=== PATIENT | male | born 1945 | race Caucasian/White ===

== ENCOUNTER → 2016-12-26 14:23 | Outpatient (CLI) | payer SELFPAY ==
[2016-06-18 09:15] VITALS: BMI 21.9
[~2016-12-26 14:23] MED LIST: COREG25 MG PO; HCTZ25 MG PO; LISINOPRIL10 MG PO; METOPROLOL TART50 MG PO; PRILOSEC20 MG PO
[2016-12-26 15:25] LABS: APPEARANCE SLT CLOUDY (CLEAR); BILIRUBIN NEGATIVE (NEGATIVE); COLOR YELLOW (YELLOW); GLUCOSE NEGATIVE (NEGATIVE); KETONE NEGATIVE (NEGATIVE); LEUKOCYTE ESTERASE NEGATIVE (NEGATIVE); NITRITE NEGATIVE (NEGATIVE); PROTEIN NEGATIVE (NEGATIVE); SPECIFIC GRAVITY 1.005 (1.005-1.020)
== END | disposition home or self-care (01) ==
LOC: D.LABREF 14:23
PROVIDERS: Emergency Medicine
DX: I10 Essential (primary) hypertension (principal); F41.9 Anxiety disorder, unspecified; F10.20 Alcohol dependence, uncomplicated

== ENCOUNTER 2017-04-11 09:15 | Inpatient (IN) | payer MEDICARE ==
[~2017-04-11] VITALS: Ht 193 cm; Wt 83.9 kg
[2017-04-11] VITALS (16 sets, daily range): BP systolic 98–154; BP diastolic 54–88; BMI 22.5
[2017-04-11 10:37] LABS: BASOPHILS 0 % (0-2); EOSINOPHILS 0 % (0-7); HEMATOCRIT 32.1 % (42.0-54.0); HEMOGLOBIN 11.2 g/dL (13.5-17.5); IMMATURE GRANULOCYTES 0.2 % (0-5); LYMPHOCYTES 4.8 % (15-50); MCH 32.5 pg (26.0-34.0); MCHC 34.9 g/dL (31.0-37.0); MEAN PLATELET VOLUME 9.6 fL (7.4-10.4); MONOCYTES 15.4 % (2-11); NEUTROPHILS 79.6 % (40-80); PLATELET COUNT 299 10x3/uL (130-400); RBC 3.45 10x6/uL (4.20-6.10); RDW 13.9 % (11.5-14.5); WBC 12.6 10x3/uL (4.8-10.8)
[2017-04-11 10:52] LABS: ALBUMIN 3.3 g/dL (3.4-5.0); ANION GAP 12.4 mmol/L (8-16); BILIRUBIN - TOTAL 0.7 mg/dL (0.2-1.3); CALCIUM 8.3 mg/dL (8.5-10.1); CARBON DIOXIDE 27.8 mmol/L (21.0-32.0); CREATININE - SERUM 1.4 mg/dL (0.6-1.3); MAGNESIUM - SERUM 2.2 mg/dL (1.8-2.4); POTASSIUM - SERUM 3.2 mmol/L (3.5-5.1); PROTEIN - SERUM 7.3 g/dL (6.4-8.2)
[2017-04-11 12:27] LABS: T4 THYROXINE 6.8 ug/dL (4.7-13.3); THYROID STIMULATING HORMONE 0.66 uIU/mL (0.36-3.74)
[2017-04-11 12:43] LABS: BASOPHILS 0 % (0-2); EOSINOPHILS 0 % (0-7); HEMOGLOBIN 10.5 g/dL (13.5-17.5); IMMATURE GRANULOCYTES 0.3 % (0-5); LYMPHOCYTES 8.4 % (15-50); MCH 32.4 pg (26.0-34.0); MCV 92.6 fL (80.0-100.0); MEAN PLATELET VOLUME 9.4 fL (7.4-10.4); MONOCYTES 13.6 % (2-11); NEUTROPHILS 77.7 % (40-80); PLATELET COUNT 277 10x3/uL (130-400); RBC 3.24 10x6/uL (4.20-6.10); RDW 13.8 % (11.5-14.5); WBC 12.1 10x3/uL (4.8-10.8)
[2017-04-11] MEDS ORDERED: BAYER ASPIRIN325 MG PO (13:20)
--- NOTE | 2017-04-11 13:45 | NUR ---
PT ARRIVED BY STRETCHER TO ROOM. SWITCHED OVER TO ICU MONITORS. LEFT AC PIV WITH NS AT 100CC/HR AND BANANA BAG INFUSING AT 225CC/HR. NURSE RECIEVING CARE OF PT IS WHITNEY MCCANN RN.
[2017-04-11 14:22] LABS: APPEARANCE CLEAR (CLEAR); BACTERIA FEW /hpf (NONE SEEN); BILIRUBIN NEGATIVE (NEGATIVE); COLOR YELLOW (YELLOW); EPITHELIAL CELLS 0-5 /hpf (0-5); GLUCOSE NEGATIVE (NEGATIVE); KETONE NEGATIVE (NEGATIVE); LEUKOCYTE ESTERASE NEGATIVE (NEGATIVE); NITRITE NEGATIVE (NEGATIVE); PROTEIN TRACE mg/dL (NEGATIVE); RED CELLS - URINE OCC /hpf (0-5); SPECIFIC GRAVITY 1.015 (1.005-1.020); UROBILINOGEN NORMAL (NORMAL); WHITE CELLS - URINE NSEEN /hpf (0-5)
--- NOTE | 2017-04-11 14:29 | NUR ---
LAB AT BEDSIDE TO REDRAW LACTIC ACID AND CBC
[2017-04-11 14:45] LABS: BASOPHILS 0 % (0-2); EOSINOPHILS 0 % (0-7); HEMATOCRIT 30.3 % (42.0-54.0); HEMOGLOBIN 10.5 g/dL (13.5-17.5); IMMATURE GRANULOCYTES 0.2 % (0-5); LYMPHOCYTES 5.3 % (15-50); MCH 32.4 pg (26.0-34.0); MCHC 34.7 g/dL (31.0-37.0); MCV 93.5 fL (80.0-100.0); MEAN PLATELET VOLUME 9.5 fL (7.4-10.4); MONOCYTES 14.8 % (2-11); NEUTROPHILS 79.7 % (40-80); PLATELET COUNT 266 10x3/uL (130-400); RBC 3.24 10x6/uL (4.20-6.10); RDW 13.9 % (11.5-14.5); WBC 10.8 10x3/uL (4.8-10.8)
--- NOTE | 2017-04-11 14:46 | NUR ---
20G PIV STARTED IN RIGHT HAND X2 STICKS.
--- NOTE | 2017-04-11 14:52 | NUR ---
PT MILDLY AGGITATED. REPORTING THAT HE USUALLY DRINKS BEER IN THE MORNING. C/O HEADACHE. WILL GIVE ATIVAN ORDERED AND CONTINUE TO MONITOR.
--- NOTE | 2017-04-11 14:54 | NUR ---
BED ALARM ON AND BILATERAL SCDs PLACED. CALL LIGHT WITHIN REACH.
[2017-04-11] MEDS ORDERED: EXCEDRIN CAPLET1 TAB PO (14:55)
[2017-04-11 15:10] LABS: CKMB 1.2 U/L (0.0-3.6); CREATINE KINASE 68 UL (21-232); TROPONIN-I 0.028 ng/mL (0.000-0.060)
--- NOTE | 2017-04-11 18:49 | NUR ---
TEMP. 101.5. BC X 2 ORDERED.
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
--- NOTE | 2017-04-11 20:00 | NUR ---
2000: Dr. Chapin here at bedside and speaking with patient. Diluadid IVP admin for pain at this time. Carafate admin and pt has not difficulty with swallow. Assisted pt reposition and provided water as per request.
--- NOTE | 2017-04-11 22:00 | NUR ---
2200: Pt resting with eyes closed at this time.
[2017-04-11 22:28] LABS: HEMATOCRIT 25.1 % (42.0-54.0); HEMOGLOBIN 8.7 g/dL (13.5-17.5)
--- NOTE | 2017-04-11 22:30 | NUR ---
2230: Pt with occasional periods of UAFib 110's on CM. No change in RESP//NV status and SBP remains >120.
[2017-04-11 22:52] LABS: CKMB 0.9 U/L (0.0-3.6); CREATINE KINASE 62 UL (21-232); POTASSIUM - SERUM 3.3 mmol/L (3.5-5.1); TROPONIN-I 0.033 ng/mL (0.000-0.060)
--- NOTE | 2017-04-11 23:00 | NUR ---
2300: Pt has occasional apnea episodes only lasting seconds while sleeping. Pt encouraged to DBC. Cont. SPO2 monitor in place with alarms set.
[2017-04-12] VITALS (28 sets, daily range): BP systolic 100–170; BP diastolic 42–115; Ht 193 cm; Wt 83.9 kg
--- NOTE | 2017-04-12 | NUR ---
0000: Planned procedure for AM reviewed with patient. Pt verbalized understanding including risks vs benefits. Pt signed consents for anesthesia, procedure and blood products.
--- NOTE | 2017-04-12 00:05 | NUR ---
0005: H/H returned and PRBC up with BT and NS as per policy to left a/c PIV.
--- NOTE | 2017-04-12 03:00 | NUR ---
0300: Pt resting with eyes closed at this time. Awake to verbal, but slow to respond. Pt remains in UAfib 100's at this time. 2nd unit of PRBCs started. No transfusion rx noted wtih 1st unit completion.
--- NOTE | 2017-04-12 05:15 | NUR ---
0515: Pt PRBC completed at this time. Pt remains UAfib 110's on CM. Pt remains slow to respond, but responds appropriateley and oriented to person, place, and time.
[2017-04-12 06:02] LABS: BASOPHILS 0 % (0-2); EOSINOPHILS 0.1 % (0-7); IMMATURE GRANULOCYTES 0.1 % (0-5); MCH 32.3 pg (26.0-34.0); MCHC 34.2 g/dL (31.0-37.0); MCV 94.5 fL (80.0-100.0); MEAN PLATELET VOLUME 9.5 fL (7.4-10.4); MONOCYTES 15.4 % (2-11); NEUTROPHILS 75.4 % (40-80); RBC 3.25 10x6/uL (4.20-6.10); RDW 14.3 % (11.5-14.5)
[2017-04-12 06:07] LABS: HEMATOCRIT 30.7 % (42.0-54.0); HEMOGLOBIN 10.5 g/dL (13.5-17.5); PLATELET COUNT 200 10x3/uL (130-400); WBC 6.9 10x3/uL (4.8-10.8)
[2017-04-12 06:18] LABS: APTT 25.3 SECONDS (22.8-39.4); INR 1.06 (0.85-1.17); PROTIME 13.6 SECONDS (11.6-15.0)
[2017-04-12 06:37] LABS: ALBUMIN 2.6 g/dL (3.4-5.0); ALKALINE PHOSPHATASE 59 U/L (46-116); ALT (SGPT) 7 U/L (10-68); BILIRUBIN - TOTAL 1.28 mg/dL (0.2-1.3); CALCIUM 7.6 mg/dL (8.5-10.1); CHLORIDE - SERUM 101 mmol/L (98-107); CKMB 0.9 U/L (0.0-3.6); CREATINE KINASE 63 UL (21-232); GLUCOSE 102 mg/dL (74-106); PROTEIN - SERUM 5.7 g/dL (6.4-8.2); SODIUM 131 mmol/L (136-145)
[2017-04-12 06:38] LABS: CALC OSMOLALITY 269 mosm/kg (275-300); POTASSIUM - SERUM 4.2 mmol/L (3.5-5.1); TROPONIN-I < 0.017 ng/mL (0.000-0.060); UREA NITROGEN 31 mg/dL (7-18); eGFR NON AFRICAN AMERICAN 78 mL/min (90-120)
--- NOTE | 2017-04-12 08:09 | NUR ---
LARGE ENEMAS X 2 ADMIN AT THIS TIME ORDERED. ALSO AT THIS TIME BED BATH ADMIN. PT DENIES ANY NEEDS. WILL CONTINUE PLAN OF CARE.
--- NOTE | 2017-04-12 10:04 | NUR ---
NO ACUTE DISTRESS NOTED AT THIS TIME. PT AWAKE IN BED. CALL LIGHT IN REACH. WILL CONTINUE PLAN OF CARE.
--- NOTE | 2017-04-12 12:01 | NUR ---
NOTED FLEX SIG HAS COMPLETED BY DR FLAHERTY, ORDERS PLACED. PT DENIES ANY NEEDS. WILL CONTINUE PLAN OF CARE.
--- NOTE | 2017-04-12 12:06 | NUR ---
EGD WITH COLONSCOPY DONE.
--- NOTE | 2017-04-12 12:29 | NUR ---
SPOKE WITH PTS DAUGHTER, UPDATE GIVEN. NO ACUTE DISTRESS NOTED. WILL CONTINUE PLAN OF CARE.
--- NOTE | 2017-04-12 13:39 | NUR ---
NOTED PT IS HYPERTENSIVE, BP 170/98. DR NAVARRO CALLED AND NOTIFIED. ORDERS RECIEVED. WILL CONTINUE PLAN OF CARE.
--- NOTE | 2017-04-12 14:34 | NUR ---
SITTING UP IN BED EATING AT THIS TIME. NO S/S ASPIRATION. NO ACUTE DISTRESS NOTED. WILL CONTINUE PLAN OF CARE.
--- NOTE | 2017-04-12 14:51 | NUR ---
HEART RATE NOTED CONVERTING FROM AFIB IN THE 80S TO SINUS WITH PACS IN THE 50S. PT DENIES ANY DISCOMFORT AND STATES HE FEELS FINE. BLOOD PRESSURE 151/84. WILL CONTINUE PLAN OF CARE.
--- NOTE | 2017-04-12 15:16 | NUR ---
RESTING IN BED AT THIS TIME, RESPIRATIONS AT STEADY AND UNLABORED RATE. NO ACUTE DISTRESS NOTED. AWAKENS EASILY WHEN SPOKEN TO. HEART RATE 94 AFIB. WILL CONTINUE PLAN OF CARE.
[2017-04-12 16:41] LABS: HEMATOCRIT 36.6 % (42.0-54.0); HEMOGLOBIN 12.4 g/dL (13.5-17.5)
--- NOTE | 2017-04-12 17:22 | NUR ---
INCONTINENT LOOSE BOWEL MOVEMENT AT THIS TIME, CLEAR BLACK. TOTAL BED CHANGE PROVIDED. NO ACUTE DISTRESS NOTED. WILL CONTINUE PLAN OF CARE.
--- NOTE | 2017-04-12 19:00 | NUR ---
Pt remains in bed with eyes closed. Open to verbal and oriented to person, place, and time. Pt moves x4 extrem vs gravity. Pt restless in bed. Breathing RA RR18x with SPO2 98% Lungs clear bilat. S1S2 regular SR with PACs seen on CM. ABD soft NT BS hypo x4. No bleeding seen at this time. Pt repositioned for comfort. Readjusted BP cuff.
--- NOTE | 2017-04-12 19:36 | NUR ---
IV TO LEFT AC NOTED PULLED OUT BY PTS MOVEMENTS. IV DC AT THIS TIME, CATHETER TIP INTACT. WILL CONTINUE PLAN OF CARE.
--- NOTE | 2017-04-12 21:00 | NUR ---
2100: Pt mouth dry. Oral care done with Oral care kit including moisturizer and H202. PO Rx after and pt has no difficulty with swallow. No change in pt RESP/CV/NV status. Pt remains SR 70's on CM with occasional PACs seen.
[2017-04-12 22:09] LABS: HEMATOCRIT 31.4 % (42.0-54.0); HEMOGLOBIN 10.5 g/dL (13.5-17.5)
[2017-04-13] VITALS (24 sets, daily range): BP systolic 122–169; BP diastolic 64–106
--- NOTE | 2017-04-13 01:00 | NUR ---
0100: Pt resting with eyes closed. Pt moves self in bed frequently. Resting on left side at this time. Pt CAfib 80's on CM with SBP 120's. No change in IVF/UOP. No bleeding seen at this time.
--- NOTE | 2017-04-13 04:30 | NUR ---
0430: No change in pt RESP/CV/NV status. No change in IVF/UOP. Pt remains CAfib 80-90's with SBP 120's. No bleeding seen, No BM, No vomitus at this time.
[2017-04-13 05:47] LABS: BASOPHILS 0.2 % (0-2); EOSINOPHILS 1.4 % (0-7); HEMATOCRIT 30.5 % (42.0-54.0); HEMOGLOBIN 10.3 g/dL (13.5-17.5); IMMATURE GRANULOCYTES 0.2 % (0-5); MCH 31.6 pg (26.0-34.0); MCHC 33.8 g/dL (31.0-37.0); MCV 93.6 fL (80.0-100.0); MEAN PLATELET VOLUME 9.5 fL (7.4-10.4); MONOCYTES 13.6 % (2-11); NEUTROPHILS 75.6 % (40-80); PLATELET COUNT 217 10x3/uL (130-400); RBC 3.26 10x6/uL (4.20-6.10); RDW 14.3 % (11.5-14.5); WBC 5.8 10x3/uL (4.8-10.8)
[2017-04-13 06:12] LABS: ALBUMIN 2.5 g/dL (3.4-5.0); ALKALINE PHOSPHATASE 65 U/L (46-116); BILIRUBIN - TOTAL 0.82 mg/dL (0.2-1.3); CALCIUM 7.6 mg/dL (8.5-10.1); CARBON DIOXIDE 22.1 mmol/L (21.0-32.0); CHLORIDE - SERUM 99 mmol/L (98-107); GLUCOSE 131 mg/dL (74-106); PROTEIN - SERUM 5.9 g/dL (6.4-8.2); SODIUM 130 mmol/L (136-145); eGFR NON AFRICAN AMERICAN 78 mL/min (90-120)
[2017-04-13 06:13] LABS: ALT (SGPT) 4 U/L (10-68); APTT 26.3 SECONDS (22.8-39.4); CALC OSMOLALITY 262 mosm/kg (275-300); POTASSIUM - SERUM 3.5 mmol/L (3.5-5.1); UREA NITROGEN 13 mg/dL (7-18)
[2017-04-13 06:14] LABS: INR 1.6 (0.85-1.17)
--- NOTE | 2017-04-13 08:29 | NUR ---
SITTING UP ON SIDE OF BED EATING BREAKFAST AT THIS TIME. DENIES ANY NEEDS. NO ACUTE DISTRESS NOTED. WILL CONTINUE PLAN OF CARE.
--- NOTE | 2017-04-13 10:32 | NUR ---
SPOKE WITH DR FLAHERTY AT THIS TIME, ORDERS RECIEVED.
--- NOTE | 2017-04-13 12:42 | NUR ---
NOTED HCT IS 30.0. INFUSION PARAMETERS STATE TO ADMIN 1 UNIT OF PRBC AT THIS TIME. WILL TRANSFUSE SHORTLY PER ORDRES. WILL CONTINUE PLAN OF CARE.
--- NOTE | 2017-04-13 13:31 | NUR ---
PERIPHERAL IV PLACED TO LEFT WRIST, 20G X 2 TRIALS. FLUSHES WELL. WILL CONTINUE PLAN OF CARE.
--- NOTE | 2017-04-13 14:30 | NUR ---
TOTAL LINEN CHANGE PROVIDED AT THIS TIME. OLD SHEETS NOTED SATURATED WITH URINE WHILE PT WAS ATTEMPTING TO USE URINAL. NO ACUTE DISTRESS NOTED. WILL CONTINUE PLAN OF CARE.
--- NOTE | 2017-04-13 16:17 | NUR ---
AWAKE IN BED AT THIS TIME WATCHING TV. DENIES ANY NEEDS. NO ACUTE DISTRESS NOTED. WILL CONTINUE PLAN OF CARE.
--- NOTE | 2017-04-13 17:08 | NUR ---
BP NOTED AT 183/100. DR NAVARRO CALLED TO NOTIFY. ORDERS RECIEVED. ALSO AT THIS TIME SPOKE WITH DR FLAHERTY, NOTED ORDER TO DECREASE H&H FROM Q6H TO ONE DAILY IN AM. NO ACUTE DISTRESS NOTED. WILL CONTINUE PLAN OF CARE.
--- NOTE | 2017-04-13 19:30 | NUR ---
ASSESSMENT COMPLETE. CONTROLLED AFIB SHOWING ON MONITOR. RR EQUAL NON LABORED; RHONCHI BILATERALLY IN MID AND UPPER LOBES; DIMINISHED BILATERALLY IN LOWER LOBES. AAO. PT INCONTINENT OF URINE; ATTEMPTED TO USE URINAL BUT MISSED. RADIAL AND PEDAL PULSES +2. BOWEL SOUNDS ACTIVE X4. DENIES PAIN. DENIES ANY FURTHER NEEDS AT THIS TIME.
--- NOTE | 2017-04-13 21:00 | NUR ---
NO VISITORS DURING VISITATION.
--- NOTE | 2017-04-13 22:25 | NUR ---
PT C/O HEADACHE. PRN DILAUDID GIVEN. SEE EMAR FOR DETAILS.
--- NOTE | 2017-04-13 23:00 | NUR ---
REASSESSMENT COMPLETE. NO ACUTE CHANGES FROM PREVIOUS ASSESSMENT. WILL CONTINUE MONITOR.
[2017-04-14] VITALS (24 sets, daily range): BP systolic 129–192; BP diastolic 75–112
--- NOTE | 2017-04-14 01:10 | NUR ---
PT RESTING; EYES CLOSED. VSS. NO DISTRESS NOTED. CALL LIGHT IN REACH. WILL CONTINUE TO MONITOR.
--- NOTE | 2017-04-14 03:10 | NUR ---
REASSESSMENT COMPLETE. NO ACUTE CHANGES FROM PREVIOUS ASSESSMENT. WILL CONTINUE TO MONITOR.
[2017-04-14 03:53] LABS: BASOPHILS 0.2 % (0-2); EOSINOPHILS 2.4 % (0-7); HEMATOCRIT 32.4 % (42.0-54.0); HEMOGLOBIN 11.1 g/dL (13.5-17.5); IMMATURE GRANULOCYTES 0.4 % (0-5); LYMPHOCYTES 10.2 % (15-50); MCH 32.3 pg (26.0-34.0); MCHC 34.3 g/dL (31.0-37.0); MCV 94.2 fL (80.0-100.0); MEAN PLATELET VOLUME 9.1 fL (7.4-10.4); NEUTROPHILS 68.8 % (40-80); PLATELET COUNT 232 10x3/uL (130-400); RBC 3.44 10x6/uL (4.20-6.10); RDW 15.1 % (11.5-14.5); WBC 5.1 10x3/uL (4.8-10.8)
--- NOTE | 2017-04-14 04:09 | NUR ---
PT C/O HEADACHE 02/19. PRN DILAUDID GIVEN PER ORDERS. SEE EMAR FOR DETAILS.
[2017-04-14 04:11] LABS: ALBUMIN 2.5 g/dL (3.4-5.0); ALKALINE PHOSPHATASE 71 U/L (46-116); ALT (SGPT) 8 U/L (10-68); BILIRUBIN - TOTAL 0.71 mg/dL (0.2-1.3); CALC OSMOLALITY 264 mosm/kg (275-300); CALCIUM 7.7 mg/dL (8.5-10.1); CARBON DIOXIDE 26.9 mmol/L (21.0-32.0); CHLORIDE - SERUM 99 mmol/L (98-107); CREATININE - SERUM 0.9 mg/dL (0.6-1.3); GLUCOSE 120 mg/dL (74-106); POTASSIUM - SERUM 3.7 mmol/L (3.5-5.1); PROTEIN - SERUM 5.5 g/dL (6.4-8.2); SODIUM 133 mmol/L (136-145); UREA NITROGEN 8 mg/dL (7-18); eGFR NON AFRICAN AMERICAN 88 mL/min (90-120)
--- NOTE | 2017-04-14 05:23 | NUR ---
COMPLETE BED BATH GIVEN. COMPLETE LINEN CHANGE.
--- NOTE | 2017-04-14 07:30 | NUR ---
ULTRA SOUND IN PT ROOM FOR ABD ULTRASOUND.
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
--- NOTE | 2017-04-14 09:00 | NUR ---
PT LYING ON RIGHT SIDE WITH 0 S/SX OF DISTRESS/DISCOMFORT NOTED. USES URINAL WITH CLEAR YELLOW URINE NOTED. 0 NEEDS VOICED AT THIS TIME. CALL LIGHT IN REACH. WILL CONT POC.
--- NOTE | 2017-04-14 09:39 | NUR ---
Nutrition follow-up: Diet: Full liquids PO intake 75-100% of FL +BM Labs reviewed Wt: 185# RDN following.
--- NOTE | 2017-04-14 10:30 | NUR ---
C/O HEAD ACHE. PRN TYLENOL GIVEN. NO OTHER COMPLAINTS AT THIS TIME. RIGHT WRIST STILL SWOLLEN. NEW HEAT BAG GIVEN TO PT TO PUT ON WRIST. CALL LIGHT IN REACH. WILL CONT POC.
--- NOTE | 2017-04-14 11:00 | NUR ---
PT LYING IN BED RESTING WITH EYES CLOSED. NO ACUTE CHANGES. STATES THAT HE IS HUNGRY. TOLD HIM THAT I WILL TALK TO HIM MD ABOUT HIS DIET.
--- NOTE | 2017-04-14 11:05 | NUR ---
REASSESSED HEAD ACHE. "IT FEELS MUCH BETTER" 10/22
--- NOTE | 2017-04-14 11:09 | NUR ---
* Is the patient Alert and Oriented? Yes 0 * How many steps to enter\exit or inside your home? Ramp 0 * PCP None 0 * Preadmission Environment Home with Family 0 * ADLs Partial Dependent 0 * Partial ADLs (Assistance needed) Ambulation 0 * Equipment Cane Rolling Walker Wheelchair 0 * List name and contact numbers for known caregivers / representatives who currently or will assist patient after discharge: Memo Hopson [phone] 0 * Additional services required to return to the preadmission environment? Yes 0 * Can the patient safely return to the preadmission environment? Yes 0 * Has this patient been hospitalized within the prior 30 days at any hospital? No Patient Name: GORDO CELESTIN Admission Status: ER Accout number: [id number] Admission Date: 04-11-2017 : 1945 Admission Diagnosis: Attending: BALAJI Current LOS: 3 Anticipated DC Date: 04-16-2017 Planned Disposition: Home Primary Insurance: MEDICARE PART A ONLY Discharge Planning Comments: CM met with patient to assess dc plans/needs. He is alert & oriented x3, answers questions appropriately. He states he lives with his daughter & her family. He states he primarily uses a wheelchair for mobility, but has a walker and cane as well. He states he has had home health services in the past but does not know which agency. At dc, he states he will go back home with his family. Home Health referral may be appropriate. CM will follow & assist as needed. Busgirl: Jennifer Salcedo
--- NOTE | 2017-04-14 12:00 | NUR ---
OK'D TO EAT LUNCH. THIN LIQUID DIET. THIN LIQUID DIET GIVEN TO PT. AT 100% WITH 0 DYSPHAGIA NOTED. NO BLOODY EMESIS NOTED. TOLERATED DIET WELL. 0 S/SX OF DISTRESS/DISCOMFORT NOTED. BREATHING NORMAL AND UNLABORED. CALL LIGHT IN REACH.
--- NOTE | 2017-04-14 12:20 | NUR ---
SPOKE WITH DR. PITT'S ABOUT PTS DIET, "YOU CAN GIVE HIM HIS DIET, I WILL BE THERE LATER."
--- NOTE | 2017-04-14 13:08 | NUR ---
BED BAD GIVEN. PT ABLE TO WASH FACE AND ABD BY HIMSELF. THE REST OF THE BATH WAS PROVIDED BY THIS NURSE. CORN STARCH APPLIED TO PERIAREA. LOTION APPLIED TO BODY. 0 SKIN BREAKDOWN NOTED. FULL LINEN CHANGE. RESIDENT DENIES NEEDS AT THIS TIME.
--- NOTE | 2017-04-14 14:00 | NUR ---
PT RESTING WITH EYES CLOSED. 0 S/SX OF DISTRESS/DISCOMFORT NOTED. BREATHING NORMAL AND UNLABORED. 0 ACUTE CHANGES FROM THIS MORNING. VS STABLE. IN CONTROLLED AFIB 60-75. USES BED SIDE URINAL PERIODICALLY. CALL LIGHT IN REACH. WILL CONT POC.
--- NOTE | 2017-04-14 15:00 | NUR ---
PT RESTING WITH EYES CLOSED. 0 ACTUE CHANGES NOTED. WILL CONT POC.
--- NOTE | 2017-04-14 16:50 | NUR ---
PT HAD TEA AT BED SIDE AND HE ACCIDENTLY SPILLED IT IN HIS BED. HE BECAME VERY AGGITATED AND AGGRESSIVE FOR A BRIEF MOMENT AND THEN APPOLOGIZED. LINEN AND GOWN CHANGED.
--- NOTE | 2017-04-14 17:00 | NUR ---
SITTING UP AT BED SIDE EATING THIN LIQUID DIET. TOLERATING WELL WITH 0 DYSPAGIA OR BLOODY EMESIS NOTED. ONCE FINISHED, HE CRAWLED BACK IN TO BED WITH NO COMPLAINTS. 0 S/SX O DISTRESS/DISCOMFORT NOTED. BREATHING LUIS A AND UNLABORED. WILL CONT POC.
--- NOTE | 2017-04-14 17:50 | NUR ---
CALLED FOR ASSISTANCE TO SIT FURTHER UP IN BED. EXPLAINED FOR HIM TO USE HIS FEET WE HELP PULL HIM IN BED USING THE DRAW SHEET WHERE HE BRIEFLY BECAME AGGITATED AND AGGRESIVE VERBALLY. HE THEN APOLOGIZED AGAIN AND WAS COOPERATIVE. 0 S/SX OF DISTRESS/DISCOMFORT NOTED. BREATHING NORMAL AND UNLABORED. CALL LIGHT IN REACH. WILL CONT POC.
--- NOTE | 2017-04-14 18:21 | NUR ---
PT LYING IN BED RESTING WITH EYES CLOSED WITH 0 SS/X OF DISTRESS/DISCOMFORT NOTED. BREATHING NORMAL AND UNLABORED. CALL LIGHT IN REACH.
--- NOTE | 2017-04-14 18:42 | NUR ---
PRN ATIVAN GIVEN DUE TO INCREASED AGGITATION AND POSSIBLE WITHDRAW FROM ALCOHOL. PT NOT HAVE A SIEZURE.
--- NOTE | 2017-04-14 19:30 | NUR ---
REPORT RECIEVED. ASSESSMENT COMPLETED. PT ALERT AND ORIENTATED X4. PT RT EYE FIXED DUE TO PERVIOUS TRAMA. LT PUPIL ROUND AND BRISK. LUNG SOUNDS WITH CRACKLES ON EXPIRATION IN UPPER LOBES. DIMINISHED BREATH SOUNDS IN THE LOWER LOBES. BOWEL SOUNDS ACTIVE X4. ALL PULESES PALPABLE. POSITIONED FOR COMFORT. WILL CONTINUE TO MONITOR.
--- NOTE | 2017-04-14 20:05 | NUR ---
DR. VARMA IN WITH PT. WILL DONTINUE TO MONITOR.
--- NOTE | 2017-04-14 21:00 | NUR ---
NO VISITORS AT THIS TIME. PT POSITIONED FOR COMFORT WILL CONTINUE TO MONITOR.
--- NOTE | 2017-04-14 23:00 | NUR ---
REASSESSMENT COMPLETED. PT STATED HE WAS HUNGRY GAVE HIM A SANDWICH TRY. PROVIDED CLEAN LINENS. POSITIONED FOR COMFORT. WILL CONTINUE TO MONITOR.
[2017-04-15] VITALS (14 sets, daily range): BP systolic 131–185; BP diastolic 70–109
--- NOTE | 2017-04-15 01:00 | NUR ---
PT APPEARA TO BE ASLEEP. WILL CONTINUE TO MONITOR.
--- NOTE | 2017-04-15 01:25 | NUR ---
REASSESSMENT COMPLETED PT SAID HE WAS HUNGRY SO GOT HIM A SANDWICH TRY AND GAVE HIM CLEAN LINENS. POSITIONED FOR COMFORT WILL CONTINUE TO MONITOR.
--- NOTE | 2017-04-15 03:00 | NUR ---
REASSESSMENT COMPLETED. PT STATED HE WAS HUNGRY GAVE HIM SOME GRAM CRACKERS TOLERATED THEN WELL. WILL CONTINUE TO MONITOR.
[2017-04-15 04:05] LABS: BASOPHILS 0.2 % (0-2); EOSINOPHILS 1.8 % (0-7); HEMATOCRIT 33.8 % (42.0-54.0); HEMOGLOBIN 11.4 g/dL (13.5-17.5); IMMATURE GRANULOCYTES 0.3 % (0-5); LYMPHOCYTES 9.4 % (15-50); MCH 31.8 pg (26.0-34.0); MCHC 33.7 g/dL (31.0-37.0); MCV 94.2 fL (80.0-100.0); MEAN PLATELET VOLUME 9.6 fL (7.4-10.4); MONOCYTES 12.6 % (2-11); NEUTROPHILS 75.7 % (40-80); PLATELET COUNT 244 10x3/uL (130-400); RBC 3.59 10x6/uL (4.20-6.10); RDW 14.5 % (11.5-14.5); WBC 6.6 10x3/uL (4.8-10.8)
[2017-04-15 04:14] LABS: ALBUMIN 2.6 g/dL (3.4-5.0); ALKALINE PHOSPHATASE 87 U/L (46-116); ALT (SGPT) 11 U/L (10-68); BILIRUBIN - TOTAL 0.52 mg/dL (0.2-1.3); CALC OSMOLALITY 263 mosm/kg (275-300); CALCIUM 7.6 mg/dL (8.5-10.1); CARBON DIOXIDE 25.7 mmol/L (21.0-32.0); CHLORIDE - SERUM 97 mmol/L (98-107); GLUCOSE 157 mg/dL (74-106); POTASSIUM - SERUM 3.3 mmol/L (3.5-5.1); PROTEIN - SERUM 5.9 g/dL (6.4-8.2); SODIUM 131 mmol/L (136-145); UREA NITROGEN 7 mg/dL (7-18); eGFR NON AFRICAN AMERICAN 78 mL/min (90-120)
--- NOTE | 2017-04-15 05:15 | NUR ---
PT WET THE BED CLEAN LINENS AND BATH APPLIED. WILL CONTINUE TO MONITOR.
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
[2017-04-15 08:12] LABS: CEA 2.3 ng/mL (0.0-4.7)
--- NOTE | 2017-04-15 08:33 | NUR ---
NONPRODUCTIVE COUGH NOTED. EXPITORY WHEEZING NOTED TO BILATERAL LUNGS. IS GIVEN AND EXPLAINED HOW TO USE IT. PT DEMOSTRATED USE TO THIS NURSE AND USES Q 10 MINS. WILL CONT POC AND MONITOR.
--- NOTE | 2017-04-15 08:45 | NUR ---
AT BED SIDE.
--- NOTE | 2017-04-15 08:50 | NUR ---
LOPRESSOR GIVEN PER ORDRES. RECHECKED 45 MINUTES LATER WITH 155/75. DENEIS PAIN. 0 NEEDS VOICED AT THIS TIME. CALL LIGHT IN REACH. WILL CONT POC.
--- NOTE | 2017-04-15 09:00 | NUR ---
ORDERS TO DC PT FROM ICU. PT AWARE.
--- NOTE | 2017-04-15 10:41 | NUR ---
LYING IN BED WATCHING TV. REQUESTED SOME SWEET TEA. GIVEN AND PT DRINKING. NO OTHER NEEDS AT THIS TIME.
--- NOTE | 2017-04-15 12:49 | NUR ---
FAMILY AT BED SIDE. AWARE OF PT'S CONDITION AND PLANS
--- NOTE | 2017-04-15 13:40 | NUR ---
BED WET WITH URINE. URINAL AT BED SIDE FILLED WITH 190ML OF URINE. FULL BED BATH GIVEN, DEODERATE APPLIED AND CORN STARCH POWDER APPLIED TO PERIAREA. FULL LINEN CHANGE AND NEW GOWN DONNED. AWAITING ROOM IN HOSPITAL FOR PT TO BE DC'D FROM ICU. VS STABLE. DENIES PAIN AND HAS NO NEEDS AT THIS TIME. CALL LIGHT IN REACH. WILL CONT MONITOR.
--- NOTE | 2017-04-15 14:00 | NUR ---
SLEEPING WITH NO SIGNS OF DISTRESS, VSS, AROUSABLE TO VERBAL STIMULI, CALL LIGHT IN REACH, VOOICES NO NEEDS AT THIS TIME
--- NOTE | 2017-04-15 14:30 | NUR ---
CALL LIGHT ON, 250 CC TO URINAL, EMPTIED
--- NOTE | 2017-04-15 15:00 | NUR ---
CALL LIGHT ON 300 CC URINE TO URINAL EMPTIED, NO OTHER ACUTE CHANGE FROM PREVIOUS ASSESSMENT, CALL LIGHT IN REACH, VOICES NO NEEDS AT THIS TIME
--- NOTE | 2017-04-15 16:30 | NUR ---
DINNER TRAY TO BEDSIDE, PATIENT INDEPENDENT SAT AT BEDSIDE TO EAT
--- NOTE | 2017-04-15 17:58 | NUR ---
CALL LIGHT ON, LARGE FORMED BM TO BEDPAN, SKINCARE AND COMPLETE LINEN CHANGE FOR SPILLAGE OF URINE FROM URINAL, REPOSITIONED WITH PERSONNEL X2 AND PATIENT HELP, TOLERATED WITHOUT DIFFICULTY
--- NOTE | 2017-04-15 20:47 | NUR ---
RECIEVED PT VIA BED FROM ICU. ALERT AND ORIENTED AND ABLE TO VERBALIZE NEEDS. IV IS PATENT AND FLUIDS ARE RUNNING PER ORDER. SCD'S ON. PT STATES PAIN IS 10/10. VILLA MAT PLACED ON FOR SAFETY. PT IS ORIENTED TO ROOM AND USE OF CALL LIGHT. NO NEEDS ARE VERBALIZED AT THIS TIME. WILL CONTINUE TO MONITOR. SIDE RAILS ARE UP X 2. BED IS IN LOWEST POSITION. CALL LIGHT IS WITHIN REACH.
--- NOTE | 2017-04-15 21:41 | NUR ---
SHIFT ASSESSMENT COMPLETED. NIGHT MEDS GIVEN WITH NO PROBLEMS. PT REQUESTING PRN ATIVAN. ADMINISTERED PER ORDER. DENIES FURTHER NEEDS. WILL MONITOR. SIDE RAILS X 2. BED LOW. VILLA ON. CALL LIGHT IN REACH.
[2017-04-16] VITALS: BP 104/76
[2017-04-16 04:00] VITALS: BP 174/102
[2017-04-16 05:16] LABS: BASOPHILS 0.4 % (0-2); EOSINOPHILS 2.5 % (0-7); HEMATOCRIT 34.8 % (42.0-54.0); HEMOGLOBIN 11.9 g/dL (13.5-17.5); IMMATURE GRANULOCYTES 1.3 % (0-5); LYMPHOCYTES 13.2 % (15-50); MCH 31.5 pg (26.0-34.0); MCHC 34.2 g/dL (31.0-37.0); MEAN PLATELET VOLUME 10.8 fL (7.4-10.4); MONOCYTES 20.1 % (2-11); NEUTROPHILS 62.5 % (40-80); PLATELET COUNT 227 10x3/uL (130-400); RBC 3.78 10x6/uL (4.20-6.10); RDW 14.1 % (11.5-14.5)
[2017-04-16 05:24] LABS: MCV 92.1 fL (80.0-100.0); WBC 4.8 10x3/uL (4.8-10.8)
[2017-04-16 05:31] LABS: ALBUMIN 2.6 g/dL (3.4-5.0); ALKALINE PHOSPHATASE 74 U/L (46-116); CALCIUM 7.7 mg/dL (8.5-10.1); CARBON DIOXIDE 28.6 mmol/L (21.0-32.0); CHLORIDE - SERUM 99 mmol/L (98-107); CREATININE - SERUM 0.9 mg/dL (0.6-1.3); PROTEIN - SERUM 6.1 g/dL (6.4-8.2); SODIUM 134 mmol/L (136-145); eGFR NON AFRICAN AMERICAN 88 mL/min (90-120)
[2017-04-16 05:35] LABS: CALC OSMOLALITY 264 mosm/kg (275-300); GLUCOSE 106 mg/dL (74-106); UREA NITROGEN 5 mg/dL (7-18)
[2017-04-16 05:37] LABS: ALT (SGPT) 8 U/L (10-68); POTASSIUM - SERUM 2.8 mmol/L (3.5-5.1)
--- NOTE | 2017-04-16 07:10 | NUR ---
REPORT RECEIVED FROM TUTORING MANAGER NURSE. CALL LIGHT IN REACH.
--- NOTE | 2017-04-16 08:18 | NUR ---
ASSESSMENT COMPLETED. AM MEDS ADMINISTERED. SCDs TO BLE. BED ALARM ON. CALL LIGHT IN REACH. WILL CONTINUE WITH PLAN OF CARE.
[2017-04-16 08:51] VITALS: BP 176/98
--- NOTE | 2017-04-16 10:39 | NUR ---
CARAFATE AND NYSTATIN PER ORDER. CALL LIGHT IN REACH.
[2017-04-16 11:11] LABS: HELICOBACTER PYLORI IGM AB 2.3 units (0.0-8.9)
--- NOTE | 2017-04-16 11:40 | NUR ---
TYLENOL PO PER C/O HEADACHE.
--- NOTE | 2017-04-16 11:56 | NUR ---
IV TO LEFT ARM WITH SWELLING AND REDNESS DC'D WITH TIP INTACT.
--- NOTE | 2017-04-16 12:17 | NUR ---
INCONTINENT OF URINE. BED BATH GIVEN PER CLOTHING ROOM SUPERVISOR AND LINENS CHANGED WITH MY ASSISTANCE. ALARM ON. CALL LIGHT IN REACH.
[2017-04-16 13:04] VITALS: BP 159/86
--- NOTE | 2017-04-16 14:45 | NUR ---
IV SITED TO RIGHT FOREARM WITH 22 GA X1 STICK. BANANA BAG INITIATED.
--- NOTE | 2017-04-16 15:30 | NUR ---
TOOK A GLASS OF TEA TO PT AT THIS TIME, PT VOICED NO OTHER NEEDS. NO VISABLE SIGNS OF PAIN OR DISCOMFORT. BED IN LOW POSITION AND CALL LIGHT WITHIN REACH.
--- NOTE | 2017-04-16 16:22 | NUR ---
C/O HEADACHE. TYLENOL PO WITH EVENING MEDS. CALL LIGHT IN REACH.
[2017-04-16 16:38] VITALS: BP 153/91
--- NOTE | 2017-04-16 19:15 | NUR ---
RECIEVED SHIFT REPORT. PT IS LYING IN BED. ALERT AND ORIENTED AND ABLE TO VERBALIZE NEEDS. IV IS PATENT AND FLUIDS ARE RUNNING PER ORDER. PT IS ABLE TO TURN SELF IN BED WITH ENCOURAGEMENT. SCD'S ON. PT STATES PAIN IS 9/10. NO NEEDS ARE VBERBALIZED AT THIS TIME. WILL CONTINUE TO MONITOR. SIDE RAILS ARE UP X 2. BED IS IN LOWEST POSITION. BED ALARM IS ON FOR SAFETY. CALL LIGHT IS WITHIN REACH.
[2017-04-16 20:00] VITALS: BP 160/94
--- NOTE | 2017-04-16 20:51 | NUR ---
SHIFT ASSESSMENT COMPLETED. NIGHT MEDS GIVEN WITH NO PROBLEMS. PT C/O PAIN 06/22. ADMINISTERED PRESCRIBED PRN TYLENOL PER ORDER. DENIES FURTHER NEEDS. WILL MONITOR. SIDE RAILS X 2. BED LOW. BED ALARM ON. CALL LIGHT IN REACH.
[2017-04-17] VITALS: BP 172/98
[2017-04-17 04:00] VITALS: BP 177/94
[2017-04-17 05:35] LABS: HEMATOCRIT 36.1 % (42.0-54.0); HEMOGLOBIN 12.1 g/dL (13.5-17.5); MCH 31.4 pg (26.0-34.0); MCHC 33.5 g/dL (31.0-37.0); MCV 93.8 fL (80.0-100.0); MEAN PLATELET VOLUME 9.7 fL (7.4-10.4); RBC 3.85 10x6/uL (4.20-6.10); WBC 4.5 10x3/uL (4.8-10.8)
[2017-04-17 05:40] LABS: PLATELET COUNT 364 10x3/uL (130-400)
[2017-04-17 05:51] LABS: ALBUMIN 2.6 g/dL (3.4-5.0); ALKALINE PHOSPHATASE 81 U/L (46-116); ALT (SGPT) 10 U/L (10-68); CALCIUM 7.6 mg/dL (8.5-10.1); CARBON DIOXIDE 29.7 mmol/L (21.0-32.0); CHLORIDE - SERUM 100 mmol/L (98-107); GLUCOSE 85 mg/dL (74-106); PROTEIN - SERUM 6.1 g/dL (6.4-8.2); SODIUM 135 mmol/L (136-145); eGFR NON AFRICAN AMERICAN 78 mL/min (90-120)
[2017-04-17 06:12] LABS: CALC OSMOLALITY 267 mosm/kg (275-300); UREA NITROGEN 9 mg/dL (7-18)
[2017-04-17 06:13] LABS: POTASSIUM - SERUM 2.9 mmol/L (3.5-5.1)
[2017-04-17 06:17] LABS: LYMPHOCYTES 14 % (15-50); MONOCYTES 18 % (2-11); NEUTROPHILS 68 % (40-80)
[2017-04-17 06:18] LABS: PLATELET ESTIMATE NORMAL
--- NOTE | 2017-04-17 07:10 | NUR ---
REPORT RECEIVED FROM PROFESSIONAL SPORTS SCOUT NURSE. CALL LIGHT IN REACH.
--- NOTE | 2017-04-17 08:28 | NUR ---
ASSESSMENT COMPLETED. C/O HEADACHE SO TYLENOL ADMINISTERED WITH TOPROL. SCDs TO BLE. BED ALARM IS ON. CALL LIGHT IN REACH. WILL CONTINUE WITH PLAN OF CARE.
[2017-04-17 09:27] VITALS: BP 191/103
--- NOTE | 2017-04-17 10:25 | NUR ---
IN BED WITH EYES CLOSED. RESP EVEN AND UNLABORED. CALL LIGHT IN REACH.
--- NOTE | 2017-04-17 11:12 | NUR ---
CARAFATE AND NYSTATIN PO. CALL LIGHT IN REACH.
[2017-04-17 13:20] VITALS: BP 165/85
--- NOTE | 2017-04-17 13:50 | NUR ---
RESTING WITH EYES CLOSED. RESP EVEN AND UNLABORED. CALL LIGHT IN REACH.
--- NOTE | 2017-04-17 15:04 | NUR ---
TYLENOL PO PER C/O GUILLAUME. BED ALARM ON. CALL LIGHT IN REACH.
--- NOTE | 2017-04-17 15:54 | NUR ---
BP 163/85. WILL CONTINUE TO MONITOR.
[2017-04-17 16:40] VITALS: BP 163/85
--- NOTE | 2017-04-17 17:02 | NUR ---
OT NOTE: PT COMPLETED BED MOB WITH MIN A AND FM/GROSS MOTOR AXS FOR INCREASED I WITH DRESSING. PT COMPLETED BUE AROM EXS FOR INCREASED ACTIVITY TOLERANCE. PT COMPLETED GROOMING TASK WITH SET UP. THANK YOU, LIVE LARIOS/Day
--- NOTE | 2017-04-17 17:12 | NUR ---
EVENING MEDS ADMINISTERED. NO NEEDS VOICED AT THIS TIME.
--- NOTE | 2017-04-17 17:45 | NUR ---
PATIENT SITTING UP IN BED TALKING ON THE PHONE. NO COMPLAINTS OR SIGNS OF DISTRESS. CALL LIGHT WITHIN REACH.
--- NOTE | 2017-04-17 17:55 | NUR ---
PATIENT IN BED WITH NO COMPLAINTS AT THIS TIME. IV INTACT. CALL LIGHT WITHIN REACH.
--- NOTE | 2017-04-17 18:06 | NUR ---
NO CHANGES IN INITIAL ASSESSMENT. SCDs TO BLE. BED ALARM ON. CALL LIGHT IN REACH.
--- NOTE | 2017-04-17 19:00 | NUR ---
BEDSIDE REPORT RECEIVED AND CARE OF PT ASSUMED. PT LYING IN SUPINE POSITION WITH EYES CLOSED. MVI N RIGHT WRIST PATENT WITH MVI INFUSING AT 125 ML / HR. 5TH RIDER OF POTASSIUM 10 MEQ INFUSING PER ELECTROLYTE PROTOCAL. WILL MONITOR CLOSELY FOR NEEDS.
--- NOTE | 2017-04-17 19:41 | NUR ---
GAVE LAST POTASSIUM RIDER PER ELECTROLYTE PROTOCOL.
[2017-04-17 20:00] VITALS: BP 130/76
[2017-04-18] VITALS: BP 169/91
--- NOTE | 2017-04-18 00:57 | NUR ---
GAVE CLONIDINE 0.1 MG PO FOR ELEVATED BP OF 169/91. WILL CONTINUE TO MONITOR CLOSELY FOR NEEDS.
--- NOTE | 2017-04-18 03:21 | NUR ---
PT HAD INCONTINENT EPISODE AND ALL BEDDING SOAKED...GETTING AGGITATED WHEN TRYING TO CHANGE LINENS AND BATH. GAVE ATIVAN 1 MG IVP PER PRN ORDER. SIDE RAILS UP X3 AND BED ALARM ON FOR SAFETY. WILL CONTINUE TO MONITOR FOR NEEDS.
[2017-04-18 04:00] VITALS: BP 165/84
[2017-04-18 05:15] LABS: BASOPHILS 0.5 % (0-2); EOSINOPHILS 2.2 % (0-7); HEMATOCRIT 35.7 % (42.0-54.0); HEMOGLOBIN 11.9 g/dL (13.5-17.5); IMMATURE GRANULOCYTES 0.3 % (0-5); LYMPHOCYTES 10.2 % (15-50); MCH 31.4 pg (26.0-34.0); MCHC 33.3 g/dL (31.0-37.0); MCV 94.2 fL (80.0-100.0); MEAN PLATELET VOLUME 9.5 fL (7.4-10.4); MONOCYTES 20.9 % (2-11); NEUTROPHILS 65.9 % (40-80); PLATELET COUNT 378 10x3/uL (130-400); RBC 3.79 10x6/uL (4.20-6.10)
[2017-04-18 05:19] LABS: WBC 5.9 10x3/uL (4.8-10.8)
[2017-04-18 05:43] LABS: ALBUMIN 2.8 g/dL (3.4-5.0); ALKALINE PHOSPHATASE 80 U/L (46-116); ALT (SGPT) 11 U/L (10-68); BILIRUBIN - TOTAL 0.34 mg/dL (0.2-1.3); CALC OSMOLALITY 265 mosm/kg (275-300); CALCIUM 7.8 mg/dL (8.5-10.1); CARBON DIOXIDE 28.1 mmol/L (21.0-32.0); CHLORIDE - SERUM 101 mmol/L (98-107); GLUCOSE 94 mg/dL (74-106); PROTEIN - SERUM 6.5 g/dL (6.4-8.2); SODIUM 134 mmol/L (136-145); UREA NITROGEN 7 mg/dL (7-18); eGFR NON AFRICAN AMERICAN 78 mL/min (90-120)
[2017-04-18 05:45] LABS: POTASSIUM - SERUM 3.6 mmol/L (3.5-5.1)
--- NOTE | 2017-04-18 06:00 | NUR ---
CHANGED ALL LINENS AND GOWN AGAIN DUE TO INCONTINENCE EPISODE. POSITIONED IN BED FOR COMFORT.
--- NOTE | 2017-04-18 07:30 | NUR ---
PT AOX4 RESP EVEN AND NONLABORED PT DENIES NEEDS AT THIS TIME IV TO RIGHT WRIST AT THIS TIME. SRX2 BED AT LOWEST SETTING CALL LIGHT WITHIN REACH WILL CONTINUE TO MONITOR
[2017-04-18 07:59] VITALS: BP 159/79
[2017-04-18] MEDS ORDERED: NYSTATIN ORAL SU5 ML PO (11:59)
[2017-04-18 12:00] VITALS: BP 161/78
[2017-04-18] MEDS ORDERED: CATAPRES TTS-10.1 MG TRANSDERM (12:00)
[2017-04-18] MEDS ORDERED: METOPROLOL TART50 MG PO (12:00)
[2017-04-18] MEDS ORDERED: PROTONIX40 MG PO (12:01)
[2017-04-18] MEDS ORDERED: CARAFATE1 G/10 ML PO (12:01)
[2017-04-18] MEDS ORDERED: VITAMIN B-1100 M1 PO (12:01)
[2017-04-18] MEDS ORDERED: FOLIC ACID1 MG PO (12:02)
--- NOTE | 2017-04-18 14:02 | NUR ---
Nutrition Follow Up: Pt is eating 100% meal avg on a regular diet. +BM 04/17/17. Meds noted. Labs reviewed. Rec continue current diet as tolerated. RD will continue to monitor pt progress.
--- NOTE | 2017-04-18 14:13 | NUR ---
CM REASSESSMENT NOTE; PATIENT IS DISCHARGING HOME TODAY/DAUGHTER DRIVING HIM. PATIENT SIGNED THE [facility] FORM WITH [facility] AND THEY HAVE BEEN NOTIFIED ABOUT DISCHARGE. LEX IMM SERVED
--- NOTE | 2017-04-18 16:09 | NUR ---
CM REASSESSMENT NOTE: [facility] CALLED AT 3:45 AND CANNOT TAKE THE PATIENT SO PATIENT [facility]OSE [facility] REF[facility] HAS BEEN SENT AND THEY KNOW PATIENT IS DISCHARGING TODAY.
[2017-04-18 16:12] VITALS: BP 167/82
--- NOTE | 2017-04-18 19:45 | NUR ---
RECIEVED ON WALKING ROUNDS AWAKE AND ALERT ORISUMAN TO NAME VOICES NEEDS TO STAFF VOIDS TO [facility]INAL HAS DISCHARGE ORDER AWAITING FAMILY TO TAKE HOME.
--- NOTE | 2017-04-18 21:49 | NUR ---
PT DISCHARGED AT THIS TIME WITH DAUGHTER ALL DISCHARGE INSTRUCTIONS GIVEN AND UNDERSTANDING EXPRESSED. PIV D/C TOLERATED WELL. TRANSFERED TO WHEELCHAIR AND TO PRIVATE VEHICLE FOR DISCHARGE HOME
== END 2017-04-18 21:50 | disposition home health service (06) | DRG 380 ==
LOC: D.ER 09:15 → D.MS 12:46 → D.ICU 12:46 → D.MS 04-15 20:50
PROVIDERS: Emergency Medicine; Internal Medicine Gastroenterology; ADMIT Family Medicine
PROC: 0DJD8ZZ Inspection of Lower Intestinal Tract, Via Natural or Artificial Opening Endoscopic (ICD-10-PCS; 2017-04-12)
PROC: 0DJ08ZZ Inspection of Upper Intestinal Tract, Via Natural or Artificial Opening Endoscopic (ICD-10-PCS; principal; 2017-04-12 10:00)
DX: K22.11 Ulcer of esophagus with bleeding (principal); G93.41 Metabolic encephalopathy; D62 Acute posthemorrhagic anemia; N17.9 Acute kidney failure, unspecified; E87.1 Hypo-osmolality and hyponatremia; F10.239 Alcohol dependence with withdrawal, unspecified; R53.81 Other malaise; E87.6 Hypokalemia; I10 Essential (primary) hypertension; K29.70 Gastritis, unspecified, without bleeding; K29.80 Duodenitis without bleeding

== ENCOUNTER 2017-08-13 04:45 | Inpatient (IN) | payer MEDICARE ==
[~2017-08-13 04:45] MED LIST changes: +BAYER ASPIRIN325 MG PO; +CARAFATE1 G/10 ML PO; +CATAPRES TTS-10.1 MG TRANSDERM; +EXCEDRIN CAPLET1 TAB PO; +FOLIC ACID1 MG PO; +NYSTATIN ORAL SU5 ML PO; +PROTONIX40 MG PO; +VITAMIN B-1100 M1 PO
[2017-08-13 05:30] LABS: APTT 23.5 SECONDS (22.8-39.4); INR 1.03 (0.85-1.17); PROTIME 13.4 SECONDS (11.6-15.0)
[2017-08-13 05:57] LABS: BASOPHILS 0.2 % (0-2); EOSINOPHILS 0.7 % (0-7); HEMATOCRIT 34.6 % (42.0-54.0); HEMOGLOBIN 10.7 g/dL (13.5-17.5); IMMATURE GRANULOCYTES 0.3 % (0-5); LYMPHOCYTES 9.6 % (15-50); MCH 25.7 pg (26.0-34.0); MCHC 30.9 g/dL (31.0-37.0); MCV 83.2 fL (80.0-100.0); MEAN PLATELET VOLUME 9.1 fL (7.4-10.4); MONOCYTES 8.1 % (2-11); NEUTROPHILS 81.1 % (40-80); RBC 4.16 10x6/uL (4.20-6.10); WBC 13.8 10x3/uL (4.8-10.8)
[2017-08-13 06:25] LABS: ALBUMIN 3.3 g/dL (3.4-5.0); ANION GAP 14.7 mmol/L (8-16); BILIRUBIN - TOTAL 0.17 mg/dL (0.2-1.3); CALCIUM 8.8 mg/dL (8.5-10.1); CARBON DIOXIDE 26.8 mmol/L (21.0-32.0); CREATININE - SERUM 1.3 mg/dL (0.6-1.3); POTASSIUM - SERUM 4.5 mmol/L (3.5-5.1)
[2017-08-13 06:30] LABS: PLATELET COUNT 457 10x3/uL (130-400)
--- NOTE | 2017-08-13 08:30 | NUR ---
PT REC'D TO ROOM VIA STRETCHER FROM ER. ALERT TO SELF ONLY. REORIENTED TO PLACE, TIME, AND SITUATION. REGULAR HEART RATE AND RHYTHM. SPOKE WITH ITFFANY ACOUSTIC SENSOR OPERATOR, ABOUT NEEDING TELEMETRY FOR PT. STATED THAT THERE WERE NO AVAILABLE MONITOR, BUT HE IS ON THE WAITLIST. CRACKLES NOTED BILAT TO UPPER LOBES AND DIMINISHED TO LOWER LOBES. BOWEL SOUNDS ACTIVE X4 QUADS. PARTIAL BED BATH PROVIDED DUE TO INCONTINENCE. BRIEF REMOVED. PIV SITED TO R HAND. X1 ATTEMPT. 22GUAGE IV CATHETER. IVF RESTARTED TO THIS SITE. PIV SALINE LOCKED TO L AC. BED LOW, CALL LIGHT IN REACH, NO COMPLAINTS OF PAIN OR NAUSEA. CPOC.
[2017-08-13] MEDS ORDERED: K-DUR20 MEQ PO (08:36)
[2017-08-13] MEDS ORDERED: FERROUS SULFAT325 MG PO (08:36)
[2017-08-13] MEDS ORDERED: BUPROPION HCL150 M1 PO (08:37)
[2017-08-13] MEDS ORDERED: ASCORBIC ACID500 MG PO (08:37)
[2017-08-13] MEDS ORDERED: WELLBUTRIN SR150 MG (08:37)
[2017-08-13] MEDS ORDERED: PACERONE200 MG PO (08:38)
[2017-08-13] MEDS ORDERED: NORVASC5 MG PO (08:38)
[2017-08-13] MEDS ORDERED: LANOXIN125 MCG PO (08:38)
[2017-08-13] MEDS ORDERED: COREG25 MG PO (08:39)
[2017-08-13 10:21] LABS: APPEARANCE CLEAR (CLEAR); BACTERIA MANY /hpf (NONE SEEN); BILIRUBIN NEGATIVE (NEGATIVE); COLOR STRAW (YELLOW); EPITHELIAL CELLS OCC /hpf (0-5); GLUCOSE NEGATIVE (NEGATIVE); KETONE NEGATIVE (NEGATIVE); MUCUS <1+ /lpf (NONE SEEN); NITRITE NEGATIVE (NEGATIVE); PROTEIN NEGATIVE (NEGATIVE); RED CELLS - URINE RARE /hpf (0-5); SPECIFIC GRAVITY 1.005 (1.005-1.020); UROBILINOGEN NORMAL (NORMAL); WHITE CELLS - URINE 0-5 /hpf (0-5)
[2017-08-13 12:11] VITALS: BP 175/100
[2017-08-13 12:59] LABS: HEMATOCRIT 31.1 % (42.0-54.0); HEMOGLOBIN 9.7 g/dL (13.5-17.5)
[2017-08-13 15:34] VITALS: BP 165/94
[2017-08-13 17:48] VITALS: BP 175/100
--- NOTE | 2017-08-13 19:20 | NUR ---
RECIEVED SHIFT REPORT. PT IS LYING IN BED. ALERT AND ORIENTED BUT WITH SOME INTERMITTENT CONFUSION. PT IS ABLE TO BE REORIENTED. IV IS PATENT AND FLUIDS ARE RUNNING PER ORDER. PT IS AMBULATORY WITH ASSISTANCE. PT STATES PAIN IS 10/10. NO NEEDS ARE VERBALIZED AT THIS TIME. WILL CONTINUE TO MONITOR. SIDE RAILS ARE UP X 2. BED IS IN LOWEST POSITION. BED ALARM IS ON FOR SAFETY. CALL LIGHT IS WITHIN REACH.
[2017-08-13 19:52] LABS: HEMATOCRIT 27.1 % (42.0-54.0); HEMOGLOBIN 8.4 g/dL (13.5-17.5)
[2017-08-13 20:00] VITALS: BP 139/72
--- NOTE | 2017-08-13 20:20 | NUR ---
SHIFT ASSESSMENT COMPLETED. NIGHT MEDS GIVEN WITH NO PROBLEMS. NO NEEDS ARE VOICED. WILL MONITOR. SIDE RAILS X 2. BED LOW. BED ALARM PIPELINER LIGHT IN REACH.
[2017-08-14] VITALS (15 sets, daily range): BP systolic 144–169; BP diastolic 68–87; BMI 23.7
[2017-08-14 03:36] LABS: BASOPHILS 0.4 % (0-2); EOSINOPHILS 3.2 % (0-7); HEMATOCRIT 27.4 % (42.0-54.0); HEMOGLOBIN 8.5 g/dL (13.5-17.5); IMMATURE GRANULOCYTES 0.1 % (0-5); LYMPHOCYTES 16.8 % (15-50); MCH 25.5 pg (26.0-34.0); MCV 82.3 fL (80.0-100.0); MEAN PLATELET VOLUME 8.9 fL (7.4-10.4); MONOCYTES 12.8 % (2-11); NEUTROPHILS 66.7 % (40-80); RBC 3.33 10x6/uL (4.20-6.10); RDW 19.1 % (11.5-14.5)
[2017-08-14 03:39] LABS: PLATELET COUNT 338 10x3/uL (130-400); WBC 6.9 10x3/uL (4.8-10.8)
[2017-08-14 03:45] LABS: HEMOGLOBIN A1C 5.3 % (4.8-6.0); INR 1.04 (0.85-1.17); PROTIME 13.5 SECONDS (11.6-15.0)
[2017-08-14 03:58] LABS: ALBUMIN 2.9 g/dL (3.4-5.0); ANION GAP 11.9 mmol/L (8-16); BILIRUBIN - TOTAL 0.16 mg/dL (0.2-1.3); CALCIUM 7.2 mg/dL (8.5-10.1); CREATININE - SERUM 1.2 mg/dL (0.6-1.3); DIGOXIN 0.17 ng/mL (0.90-2.00); POTASSIUM - SERUM 3.9 mmol/L (3.5-5.1); PROTEIN - SERUM 6.7 g/dL (6.4-8.2); THYROID STIMULATING HORMONE 0.45 uIU/mL (0.36-3.74)
--- NOTE | 2017-08-14 07:43 | NUR ---
REC'D IN BED AWAKE AND ALERT. RESP EVEN AND UNLABORED WITH NO DISTRESS NOTED. CAN EXPRESS NEEDS AND WANTS. C/O BILATERL LOWER EXT PAIN RATING 9/10 ON PAIN SCLALE. ASSESSMENT COMPLETED. C/L IN REACH AT BEDSIDE.
--- NOTE | 2017-08-14 09:44 | NUR ---
ALL PO AM MEDICATION WASTED D/T PT BEING NPO D/T EGD WITH TIVA.
[2017-08-14 13:55] LABS: HEMOGLOBIN 8.9 g/dL (13.5-17.5)
--- NOTE | 2017-08-14 14:20 | NUR ---
THIS NURSE WENT DOWN TO LAB TO OBTAIN FFP BUT WAS UNABLE TO OBTAIN D/T FFP NOT READY YET. THIS NURSE WAS WAS ASKED BY LAB STAFF WASN'T THAT CANCELLED THIS NURSE THEN INFORMED LAB STAFF THAT NO THE FFP WAS NOT CANCELLED AND THAT I HAD REC'D A CALL EARLIER ON IN THE AM AND THAT I HAD INFORME THEN THAT THEY WHERE DUE AT 1400.
--- NOTE | 2017-08-14 18:12 | NUR ---
CLIP APPLIED AND INJECTED 2.5CC OF EPINEPHRINE FOR BLEEDING CONTROL.
--- NOTE | 2017-08-14 19:40 | NUR ---
PT RETURN TO ROOM 2202 WITH EYES CLOSED EASILY AROUSED WHEN NAME IS CALLED ON STRETCHER FROM PACU. RESP EVEN AND UNLABORED WITH NO DISTRESS NOTED. NO C/O PAIN OR DISCOMFORT NOTED OR VOICED. C/L IN REACH AT BEDSIDE.
--- NOTE | 2017-08-14 19:45 | NUR ---
VS UPON RETURN WAS 98.4, 101, 20, 186/104 SPO2 @ 94%
[2017-08-14 20:17] LABS: HEMOGLOBIN 9.1 g/dL (13.5-17.5)
[2017-08-15] VITALS (11 sets, daily range): BP systolic 123–163; BP diastolic 66–89
[2017-08-15 03:06] LABS: BASOPHILS 0.2 % (0-2); HEMATOCRIT 29.7 % (42.0-54.0); HEMOGLOBIN 9.1 g/dL (13.5-17.5); IMMATURE GRANULOCYTES 0.3 % (0-5); LYMPHOCYTES 3.7 % (15-50); MCH 25.6 pg (26.0-34.0); MCHC 30.6 g/dL (31.0-37.0); MCV 83.4 fL (80.0-100.0); MEAN PLATELET VOLUME 8.9 fL (7.4-10.4); MONOCYTES 9.4 % (2-11); NEUTROPHILS 84.4 % (40-80); PLATELET COUNT 358 10x3/uL (130-400); RBC 3.56 10x6/uL (4.20-6.10); RDW 18.8 % (11.5-14.5); WBC 10.7 10x3/uL (4.8-10.8)
[2017-08-15 03:15] LABS: INR 0.97 (0.85-1.17); PROTIME 12.7 SECONDS (11.6-15.0)
[2017-08-15 03:20] LABS: ALBUMIN 3.4 g/dL (3.4-5.0); ANION GAP 12.5 mmol/L (8-16); BILIRUBIN - TOTAL 0.33 mg/dL (0.2-1.3); CALCIUM 8.3 mg/dL (8.5-10.1); CARBON DIOXIDE 26.4 mmol/L (21.0-32.0); CREATININE - SERUM 1.2 mg/dL (0.6-1.3); POTASSIUM - SERUM 3.9 mmol/L (3.5-5.1); PROTEIN - SERUM 7.7 g/dL (6.4-8.2)
--- NOTE | 2017-08-15 07:00 | NUR ---
REPORT RECIEVED ASSUMED CARE. PATIENT IN BED WITH IV INTACT. TELE ON. NO COMPLAINTS. CALL LIGHT WITHIN REACH. PATIENT IN BED WITH EYES CLOSED. NO SIGNS OF DISTRESS.
[2017-08-15 09:02] LABS: HEMATOCRIT 30.2 % (42.0-54.0); HEMOGLOBIN 9.5 g/dL (13.5-17.5)
--- NOTE | 2017-08-15 10:30 | NUR ---
PATIENT IN BED WAITING TO GO FOR CT SCAN. CONFUSED STATING HE IS WAITNG TO GO DOWN TO PLAY BASKETT BALL. REORIENTED PATIENT AT THIS TIME. VERBALIZED UNDERSTANDING. CALL LIGHT WITHIN REACH. BA ON.
--- NOTE | 2017-08-15 13:00 | NUR ---
PATIENT IN BED AT THIS TIME WITH TELEMETRY OFF AND IV OUT. STATED HE WOULD BE GOING HOME TODAY. EXPLAINED THERE WERE NO DRKodi ORDERS FOR DISCHARGE AND I WOULD NEED TO RESTART IV AND PUT TELE BACK ON. REFUSED BOTH. STATED HE CAN LEAVE THE HOSPITAL EVEN IF WE DONT WANT HIM TOO BUT THAT HE WOULD WAIT FOR THE DOCTOR. CALL LIGHT WITHIN REACH. BA ON.
--- NOTE | 2017-08-15 15:50 | NUR ---
NOTIFIED DR. FLAHERTY OF PATIENT REFUSING TELE AND IV. STATED OK TO LEAVE OUT FOR NOW. PATIENT IN BED WITH NO COMPLAINTS. WAITING FOR FULL LIQUID DIET. CALL LIGHT WITHIN REACH.
[2017-08-15 16:01] LABS: HEMATOCRIT 31.1 % (42.0-54.0); HEMOGLOBIN 9.8 g/dL (13.5-17.5)
--- NOTE | 2017-08-15 17:00 | NUR ---
PATIENT TOLERATED FULL LIQUID DIET WITH NO PROBLEMS. CALL LIGHT WITHIN REACH.
--- NOTE | 2017-08-15 18:55 | NUR ---
PATIENT IN BED WITH EYES CLOSED RESTING QUIETLY AT THIS TIME. IV INTACT. CALL LIGHTW ITHIN REACH.
[2017-08-15 21:46] LABS: HEMATOCRIT 29.1 % (42.0-54.0); HEMOGLOBIN 9.3 g/dL (13.5-17.5)
[2017-08-16 03:46] LABS: BASOPHILS 0.2 % (0-2); EOSINOPHILS 6.3 % (0-7); HEMATOCRIT 30.8 % (42.0-54.0); HEMOGLOBIN 9.8 g/dL (13.5-17.5); IMMATURE GRANULOCYTES 0.3 % (0-5); LYMPHOCYTES 12.1 % (15-50); MCH 26.6 pg (26.0-34.0); MCHC 31.8 g/dL (31.0-37.0); MCV 83.7 fL (80.0-100.0); MEAN PLATELET VOLUME 9.1 fL (7.4-10.4); MONOCYTES 13.8 % (2-11); NEUTROPHILS 67.3 % (40-80); PLATELET COUNT 320 10x3/uL (130-400); RBC 3.68 10x6/uL (4.20-6.10); RDW 18.6 % (11.5-14.5)
[2017-08-16 03:47] LABS: WBC 6.2 10x3/uL (4.8-10.8)
[2017-08-16 04:00] LABS: ALBUMIN 3.1 g/dL (3.4-5.0); ANION GAP 14.7 mmol/L (8-16); BILIRUBIN - TOTAL 0.39 mg/dL (0.2-1.3); CALCIUM 8.4 mg/dL (8.5-10.1); CARBON DIOXIDE 23.5 mmol/L (21.0-32.0); CREATININE - SERUM 1.1 mg/dL (0.6-1.3); POTASSIUM - SERUM 4.2 mmol/L (3.5-5.1); PROTEIN - SERUM 6.9 g/dL (6.4-8.2)
[2017-08-16 05:05] VITALS: BP 155/85
[2017-08-16 08:33] VITALS: BP 169/91
[2017-08-16 09:11] LABS: HEMATOCRIT 33.4 % (42.0-54.0); HEMOGLOBIN 10.5 g/dL (13.5-17.5)
--- NOTE | 2017-08-16 09:25 | NUR ---
AWAKE AND AELRT. ORIENTED X3. NO C/O AT THIS TIME. LUNGS HAVE CRACKLES AND WHEEZES NOTED TO RIGHT LOBES, REPORTS OCCASSIONALLY PRODUCTIVE COUGH WITH YELLOWISH SPUTUM. SKIN IS INTACT WITHOUT REDNESS. SCD'S IN PLACE. DENIES NEEDS EXCEPT TYLENOL FOR HEADACHE. WILL MONITOR.
--- NOTE | 2017-08-16 10:55 | NUR ---
REQUESTED AND GIVEN 650MG TYLENOL PO FOR C/O HEADACHE. DENIES NEEDS.
--- NOTE | 2017-08-16 12:15 | NUR ---
LUNCH SERVED IN ROOM. FEEDS SELF.
[2017-08-16 12:26] VITALS: BP 137/79
--- NOTE | 2017-08-16 13:30 | NUR ---
CONTINUES WITH C/O HEADACHE, IMPROVED SLIGHTLY BUT STILL THERE. REQUESTED AND GIVEN 650MG TYLENOL PO FOR SAME. WILL MONITOR.
[2017-08-16 15:36] LABS: HEMATOCRIT 30.7 % (42.0-54.0); HEMOGLOBIN 9.7 g/dL (13.5-17.5)
[2017-08-16 17:06] VITALS: BP 116/69
--- NOTE | 2017-08-16 19:20 | NUR ---
GIVEN HYDROCODONE PO PER NEW ORDERS. NOT HELPING MUCH AT THIS TIME. WILL CONTINUE TO MONITOR.
[2017-08-16 21:54] LABS: HEMATOCRIT 29.5 % (42.0-54.0); HEMOGLOBIN 9.4 g/dL (13.5-17.5)
[2017-08-16 21:56] VITALS: BP 135/65
[2017-08-17] VITALS (14 sets, daily range): BP systolic 123–155; BP diastolic 58–100
--- NOTE | 2017-08-17 02:58 | NUR ---
ASSESSED AT THE BEGINNING OF THE SHIFT. PT IS ALERT BUT HAS SOME CONFUSION. HE HAS C/O GENERALIZED DISCOMFORT AND A HEADACHE AND IS RECEIVING NORCO ALTERNATING WITH TYLENOL TO KEEP HIM COMFORTABLE. HIS LAB CAME BACK WITH A LOW HEMAGLOBIN AND PER ORDERS WE ARE NOW GIVING 1 UNIT OF PRBC'S. THE URINAL REMAINS AT THE BEDSIDE AND HE IS GOOD ABOUT USING IT. A NEW IV WAS STARTED IN HIS RIGHT HAND FOR THE BLOOD. AT THIS TIME HE IS ALSMOST FINISHED WITH THE BLOOD AND IS SLEEPING QUIET WITH NO DISTRESS NOTED. THE BED IS LOW, RAILS UP X'S 2 WITH THE CALL LIGHT AT HAND.
[2017-08-17 05:08] LABS: BASOPHILS 0.4 % (0-2); EOSINOPHILS 8.1 % (0-7); HEMATOCRIT 32.7 % (42.0-54.0); HEMOGLOBIN 10.5 g/dL (13.5-17.5); IMMATURE GRANULOCYTES 0.4 % (0-5); LYMPHOCYTES 13.5 % (15-50); MCH 27.1 pg (26.0-34.0); MCHC 32.1 g/dL (31.0-37.0); MCV 84.3 fL (80.0-100.0); MEAN PLATELET VOLUME 9.1 fL (7.4-10.4); MONOCYTES 12.5 % (2-11); NEUTROPHILS 65.1 % (40-80); PLATELET COUNT 343 10x3/uL (130-400); RBC 3.88 10x6/uL (4.20-6.10); RDW 18.3 % (11.5-14.5); WBC 5.5 10x3/uL (4.8-10.8)
[2017-08-17 05:40] LABS: ALBUMIN 2.9 g/dL (3.4-5.0); ANION GAP 12.8 mmol/L (8-16); BILIRUBIN - TOTAL 0.83 mg/dL (0.2-1.3); CALCIUM 8.1 mg/dL (8.5-10.1); CREATININE - SERUM 1.1 mg/dL (0.6-1.3); POTASSIUM - SERUM 3.8 mmol/L (3.5-5.1)
--- NOTE | 2017-08-17 07:59 | NUR ---
AWAKE AND ALERT. ORIENTED X3. C/O HEADACHE THIS AM. LUNGS ARE CLEAR BILATERALLY, NO COGUH NOTED. SKIN IS INTACT WITHOUT REDNESS.SCD'S IN PLACE. SL TO RIGHT HAND PATENT WITHOUT REDNESS AT INSERTION SITE. DENIES NEEDS.
--- NOTE | 2017-08-17 10:00 | NUR ---
UP IN CHAIR AT BEDSIDE PER PT. DOING WELL STILL C/O HEADACHE. DR. ELIAS HERE NEW ORDERS RECEIVED.
--- NOTE | 2017-08-17 12:00 | NUR ---
LUNCH SERVED IN ROOM. ATE MOST OF MEAL. DENIES NEEDS.
--- NOTE | 2017-08-17 12:45 | NUR ---
REQUESTED AND GIVEN ONE HYDROCODONE PO FOR C/O HEADACHE. WILL MONITOR.
--- NOTE | 2017-08-17 15:00 | NUR ---
RESTING QUIETLY. DENIES NEEDS.
--- NOTE | 2017-08-17 16:11 | NUR ---
PATIENT'S DAUGHTER , ERICK NEELY, STATES SHE IS POA. COPY OF DOCUMENT IS ON PATIENT'S CHART. ERICK NEELY- [phone]. THE PATIENT WAS APPARENTLY AT [facility] IN [place], [place] FROM 06/04- 06/24/17. PER HIS [facility] DISCHARGE PAPERWORK HE WAS REFERRED TO CARE FOR HOME HEALTH SERVICE. TC TO [facility]. THEY HAD RECEIVED A REFERRAL FOR SERVICES BUT IT WAS CANCELLED. NOTED PATIENT ONLY HAS MEDICARE PART A. CM WILL FOLLOW TO ASSIST WITH DISCHARGE PLANNING.
--- NOTE | 2017-08-17 16:48 | NUR ---
REQUESTED AND GIVEN ONE HYDROCODONE PO FOR C/O HEADACHE LEVEL 6. WILL MONITOR.
--- NOTE | 2017-08-17 17:58 | NUR ---
ATE ABOUT HALF OF SUPPER. NO NEEDS NOTED. NO CHANGES
--- NOTE | 2017-08-17 20:45 | NUR ---
REST IN BED AND WATCH TV.
--- NOTE | 2017-08-17 23:15 | NUR ---
RN NOTE: PT LYING ON RIGHT SIDE , AWAKE AND ALERT USING URINAL. IV IN RIGHT HAND SALINE LOCKED. TELEMETRY IN PLACE. BED ALARM IN USE. WILL CONTINUE TO MONITOR FOR NEEDS.
--- NOTE | 2017-08-17 23:44 | NUR ---
REST IN BED, EYE CLOSE, CALL LIGHT IN REACH.
[2017-08-18 01:36] VITALS: BP 137/80
--- NOTE | 2017-08-18 02:13 | NUR ---
EMPTY URINAL 200ML.
[2017-08-18 05:04] VITALS: BP 129/61
[2017-08-18 05:15] LABS: BASOPHILS 0.3 % (0-2); EOSINOPHILS 10.1 % (0-7); HEMATOCRIT 35.6 % (42.0-54.0); HEMOGLOBIN 11.4 g/dL (13.5-17.5); IMMATURE GRANULOCYTES 0.2 % (0-5); LYMPHOCYTES 9.3 % (15-50); MCH 27.1 pg (26.0-34.0); MCV 84.8 fL (80.0-100.0); MEAN PLATELET VOLUME 9.6 fL (7.4-10.4); MONOCYTES 17.2 % (2-11); NEUTROPHILS 62.9 % (40-80); RDW 18.5 % (11.5-14.5); WBC 6.2 10x3/uL (4.8-10.8)
[2017-08-18 05:32] LABS: PLATELET COUNT 416 10x3/uL (130-400)
[2017-08-18 05:35] LABS: ANION GAP 13.6 mmol/L (8-16); CALCIUM 8.6 mg/dL (8.5-10.1); CARBON DIOXIDE 25.5 mmol/L (21.0-32.0); CREATININE - SERUM 1.1 mg/dL (0.6-1.3); POTASSIUM - SERUM 4.1 mmol/L (3.5-5.1)
[2017-08-18 08:21] VITALS: BP 111/69
--- NOTE | 2017-08-18 13:22 | NUR ---
CM spoke with Patient and Dr Perdomo about discharge planning needs. Patient stated that he wanted to go home, he lives with his daughter and she will be the one to drive him home. He has all the medical equipment he needs. He is refusing home health and rehab. Dr Perdomo aware and is OK with D/C. ANNA will continue to follow and assist if needed.
[2017-08-18 13:28] VITALS: BP 147/76
--- NOTE | 2017-08-18 15:13 | NUR ---
CM HAS SPOKE TO BOTH DAUGHTERS IN LENGTH ABOUT THEIR DADS CARE. PATIENT HAS REFUSED ALL HELP. DOES NOT WANT TO GO TO INPATIENT REHAB, DOES NOT WANT HOME HEALTH, JUST WANTS TO GO HOME. DAUGHTER STATES THAT HE IS A HEAVY DRINKER. WENT AND SPOKE WITH PATIENT ABOUT A ALCOHOL TREATMENT, HE REFUSES ANYTHING TO DO WITH THAT. HE DOES NOT WANT TO STOP DRINKING. I SPOKE WITH LAN ABOUT THIS AND SHE MENTIONED HOSPICE AND ASKED IF I WOULD GO SPEAK WITH HER DAD ABOUT HOSPICE. I SPOKE WITH HIM AND HE SAID HE WOULD BE INTRESSTED IN HOSPICE. I CALLED DR DICKERSON ABOUT HOSPICE AND HE SAID I COULD ORDER IT. THE PATIENT HAS CHANGED HIS MIND AND STATED HE JUST WANTED TO GO HOME. PATIENT IS BEING DISCHARGED HOME AND HIS DAUGHTER ZHANNA WILL BE THE ONE TO PICK HIM UP AFTER 5:00 PM CM WILL CONTINUE TO FOLLOW AND ASSIST IF NEEDED
--- NOTE | 2017-08-18 15:19 | NUR ---
ATTEMPTED TO MAKE REFERRAL TO [facility] AND THEY WILL NOT ACCEPT HIM BECAUSE HE NEVER WOULD ANSWER PHONE CALL TO SET UP INITIAL APPOINTMENT AND HE DOES NOT HAVE A PCP.
[2017-08-18 16:13] VITALS: BP 141/84
--- NOTE | 2017-08-18 19:30 | NUR ---
RECIEVED SHIFT REPORT. PT IS LYING IN BED. PT IS ALERT AND ORIENTED BUT CAN HAVE SOME INTERMITTENT CONFUSION. PT IS ABLE TO BE REORIENTED. IV IS PATENT AND SALINE LOC AT THIS TIME. SCD'S OFF PER PT REQUEST. PT STATES PAIN IS 9/10. PT IS AMBULATORY WITH ASSISTANCE. NO NEEDS ARE VERBALIZED AT THIS TIME. WILL CONTINUE TO MONITOR. SIDE RAILS ARE UP X 2. BED IS IN LOWEST POSITION. BED ALARM IS ON FOR SAFETY. CALL LIGHT IS WITHIN REACH.
--- NOTE | 2017-08-18 20:38 | NUR ---
SHIFT ASSESSMENT COMPLETED. NIGHT MEDS GIVEN WITH NO PROBLEMS. PT C/O PAIN 05/22. ADMINISTERED PRESCRIBED PRN NORCO PER ORDER. DENIES FURTHER NEEDS. WILL MONITOR. SIDE RAILS X 2. BED LOW. BED ALARM ON. CALL LIGHT IN REACH.
[2017-08-19] VITALS: BP 127/74
[2017-08-19 04:00] VITALS: BP 165/89
--- NOTE | 2017-08-19 07:00 | NUR ---
REPORT RECEIVED, ASSUMED CARE OF PT. NO NEEDS VOICED AT THIS TIME. RESTING, EASILY AROUSED. R HAND SALINE LOCKED, DRSG C/D/I. BED IN LOWEST POSITION, SIDE RAILS UP X 2, CALL LIGHT WITHIN REACH.
--- NOTE | 2017-08-19 07:58 | NUR ---
Cm attempted to call both daughters about coming to get their father and I did not get a answer. CM will attempt again later
--- NOTE | 2017-08-19 08:15 | NUR ---
PT FAMILY MEMBER JANKI CALLED STATING SHE IS "GOING TO COME UP THERE AND BRING CERTIFIED PAPERWORK STATING PT HOUSE IS SOLD AND TRY AND TALK HIM INTO GOING TO REHAB BECAUSE HE DOESN'T HAVE ANYWHERE TO GO."
[2017-08-19 09:40] VITALS: BP 131/80
--- NOTE | 2017-08-19 11:15 | NUR ---
R HAND IV D/C'D FOR DISCHARGE, IV CATHETER TIP INTACT, BANDAGE APPLIED. DISCHARGE INSTRUCTIONS GIVEN TO PT AND FAMILY, VERBALIZED UNDERSTANING AND SIGNED. NO QUESTIONS AT THIS TIME.
--- NOTE | 2017-08-19 11:21 | NUR ---
PT DISCHARGED FROM FLOOR VIA WHEELCHAIR WITH HOSPITAL STAFF AND FAMILY TO FAMILY VEHICLE. PERSONAL BELONGINGS WITH PT.
--- NOTE | 2017-08-19 12:48 | NUR ---
PATIENT DISCHARGED TODAY WITH HIS DAUGHTER ZHANNA HERE TO PICK HIM UP. HE WAS OFFERED HOME HELATH, AND REHAB AGAIN AND HE REFUSED BOTH.
== END 2017-08-19 11:21 | disposition home or self-care (01) | DRG 391 ==
LOC: OBSVTIME → D.ER 04:45 → D.OPS 04:45 → OBSVTIME 07:36 → D.MS 07:36 → D.ER 07:36 → D.MS 07:36 → EDSTATUS 08-14 16:30 → D.MS 08-19 11:21
PROVIDERS: Emergency Medicine; Family Medicine; Internal Medicine Gastroenterology; ADMIT Family Medicine
PROC: 3E0G8GC Introduction of Other Therapeutic Substance into Upper GI, Via Natural or Artificial Opening Endoscopic (ICD-10-PCS; 2017-08-14)
PROC: 0W3P8ZZ Control Bleeding in Gastrointestinal Tract, Via Natural or Artificial Opening Endoscopic (ICD-10-PCS; principal; 2017-08-14 16:30)
DX: K22.8 Other specified diseases of esophagus (principal); R53.2 Functional quadriplegia; D62 Acute posthemorrhagic anemia; I10 Essential (primary) hypertension; I48.91 Unspecified atrial fibrillation; Z79.01 Long term (current) use of anticoagulants; E11.9 Type 2 diabetes mellitus without complications; H54.61 Unqualified visual loss, right eye, normal vision left eye; F03.90 Unspecified dementia, unspecified severity, without behavioral disturbance, psychotic disturbance, mood disturbance, and anxiety; F10.10 Alcohol abuse, uncomplicated; K29.70 Gastritis, unspecified, without bleeding; K44.9 Diaphragmatic hernia without obstruction or gangrene; K29.80 Duodenitis without bleeding; R53.1 Weakness; R51 Headache

== ENCOUNTER 2017-09-06 15:13 | Inpatient (IN) | payer MEDICARE ==
[~2017-09-06] VITALS: Ht 190.5 cm; Wt 80.3 kg
[~2017-09-06 15:13] MED LIST changes: +ASCORBIC ACID500 MG PO; +BUPROPION HCL150 M1 PO; +FERROUS SULFAT325 MG PO; +K-DUR20 MEQ PO; +LANOXIN125 MCG PO; +NORVASC5 MG PO; +PACERONE200 MG PO; +WELLBUTRIN SR150 MG
[2017-09-06 15:51] LABS: BASOPHILS 0 % (0-2); EOSINOPHILS 0 % (0-7); IMMATURE GRANULOCYTES 0.3 % (0-5); LYMPHOCYTES 6.9 % (15-50); MCH 26.1 pg (26.0-34.0); MCHC 30.8 g/dL (31.0-37.0); MCV 84.7 fL (80.0-100.0); MEAN PLATELET VOLUME 9.6 fL (7.4-10.4); MONOCYTES 5.4 % (2-11); NEUTROPHILS 87.4 % (40-80); RDW 19.2 % (11.5-14.5); WBC 11.5 10x3/uL (4.8-10.8)
[2017-09-06 15:58] LABS: HEMATOCRIT 13.3 % (42.0-54.0); PLATELET COUNT 312 10x3/uL (130-400)
[2017-09-06 15:59] LABS: HEMOGLOBIN 4.1 g/dL (13.5-17.5); RBC 1.57 10x6/uL (4.20-6.10)
[2017-09-06 16:07] LABS: ALBUMIN 2.8 g/dL (3.4-5.0); BILIRUBIN - TOTAL 0.23 mg/dL (0.2-1.3); CALCIUM 7.7 mg/dL (8.5-10.1); CARBON DIOXIDE 13.5 mmol/L (21.0-32.0); CREATININE - SERUM 2.4 mg/dL (0.6-1.3); POTASSIUM - SERUM 3.5 mmol/L (3.5-5.1); PROTEIN - SERUM 6.3 g/dL (6.4-8.2)
[2017-09-06 16:50] LABS: APPEARANCE HAZY (CLEAR); BILIRUBIN NEGATIVE (NEGATIVE); COLOR YELLOW (YELLOW); GLUCOSE NEGATIVE (NEGATIVE); KETONE NEGATIVE (NEGATIVE); NITRITE NEGATIVE (NEGATIVE); PROTEIN NEGATIVE (NEGATIVE); UROBILINOGEN NORMAL (NORMAL)
--- NOTE | 2017-09-06 18:58 | NUR ---
SPOKE WITH PT'S DAUGHTER JANKI. STATES HER FATHER HAS BEEN SEVERELY DEPRESSED LATELY ESPECIALLY THE LAST WEEK OR TWO DUE TO POSSIBLY "LOSING THE HOUSE" CONCERNED ABOUT RECENT HOSPITAL ADMISSION FOR "THE SAME THING" POA PAPERWORK REQUESTED. STATES SHE WILL BE HERE AT 0500. CONTACT INFO TAKEN.
[2017-09-06 19:00] VITALS: BP 154/82
--- NOTE | 2017-09-06 19:00 | NUR ---
RECEIVED CARE FROM DAY NURSE. PT LYING IN BED WITH EYES CLOSED. RESP EVEN AND UNLABORED. CALL LIGHT AT SIDE. CRITICORT NGUYEN IN PLACE. IV INFUSING TO LEFT FINGER AND LEFT FOOT PER ORDER. O2 AT 2L VIA NC. NO S/S OF DISTRESS NOTED AT THIS TIME. CALL LIGHT AT SIDE.
[2017-09-06 19:42] LABS: HEMATOCRIT 35.7 % (42.0-54.0); HEMOGLOBIN 11.4 g/dL (13.5-17.5)
[2017-09-06 19:47] LABS: UDS - AMPHET NEGATIVE QUAL (NEGATIVE); UDS - BARB NEGATIVE QUAL (NEGATIVE); UDS - BENZO POSITIVE QUAL (NEGATIVE); UDS - COCAINE NEGATIVE QUAL (NEGATIVE); UDS - OPIATE NEGATIVE QUAL (NEGATIVE); UDS - PCP NEGATIVE QUAL (NEGATIVE); UDS - THC NEGATIVE QUAL (NEGATIVE)
[2017-09-06 20:00] VITALS: BP 157/95
[2017-09-06 20:20] VITALS: BP 175/83; BMI 22.8
[2017-09-06 21:00] VITALS: BP 162/91
--- NOTE | 2017-09-06 21:50 | NUR ---
PT RR AT 22, HR AT 104, HANDS SHAKING AND PULLING AT NGUYEN AND LEADS. UNABLE TO FOLLOW COMMANDS AT THIS TIME. ATIVAN 1MG IV GIVEN PER DT PROTOCOL.
[2017-09-06 22:00] VITALS: BP 148/73
--- NOTE | 2017-09-06 22:15 | NUR ---
RESTING IN BED WITH NO DISTRESS. VSS. HOB UP. C/L IN REACH. BED ALARM ON. CONT CURRENT POC.
[2017-09-06 23:00] VITALS: BP 150/94
[2017-09-07] VITALS (23 sets, daily range): BP systolic 95–161; BP diastolic 46–98
--- NOTE | 2017-09-07 00:01 | NUR ---
RESTLESS AND PULLING AT LINES, INCREASED RESP RATE AND HEART RATE. IV ATIVAN GIVEN PER ORDER.
--- NOTE | 2017-09-07 02:41 | NUR ---
RESTING QUITLY WITH EYES CLOSED. RESP EVEN AND UNLABORED. CALL LIGHT AT SIDE. BED ALARM ARMED. IV TO LEFT HND AND LEFT FOOT PATENT.
--- NOTE | 2017-09-07 03:53 | NUR ---
PT WILL NOT LEAVE CONT PULSE OX ON OR NC IN PLACE. O2 98% ON ROOM AIR AT THIS TIME. WILL CONTINUE TO MONITOR.
[2017-09-07 05:35] LABS: BASOPHILS 0 % (0-2); EOSINOPHILS 0 % (0-7); HEMATOCRIT 29.7 % (42.0-54.0); IMMATURE GRANULOCYTES 0.5 % (0-5); LYMPHOCYTES 3.9 % (15-50); MCH 27.4 pg (26.0-34.0); MCHC 33.7 g/dL (31.0-37.0); MEAN PLATELET VOLUME 9.6 fL (7.4-10.4); MONOCYTES 10.3 % (2-11); NEUTROPHILS 85.3 % (40-80); RDW 18.9 % (11.5-14.5)
[2017-09-07 05:41] LABS: MCV 81.4 fL (80.0-100.0); PLATELET COUNT 190 10x3/uL (130-400); RBC 3.65 10x6/uL (4.20-6.10); WBC 17.2 10x3/uL (4.8-10.8)
[2017-09-07 06:04] LABS: ALBUMIN 2.9 g/dL (3.4-5.0); ANION GAP 18.7 mmol/L (8-16); BILIRUBIN - TOTAL 0.83 mg/dL (0.2-1.3); CALCIUM 7.3 mg/dL (8.5-10.1); CREATININE - SERUM 2.1 mg/dL (0.6-1.3); MAGNESIUM - SERUM 2.6 mg/dL (1.8-2.4); PROTEIN - SERUM 6.1 g/dL (6.4-8.2)
[2017-09-07 06:07] LABS: CARBON DIOXIDE 17.3 mmol/L (21.0-32.0)
--- NOTE | 2017-09-07 08:45 | NUR ---
SPOKE WITH PT'S DAUGHTER ERICK WHO STATES SHE IS THE POA. UNABLE TO PROVIDE CURRENT PASSWORD. REQUESTED PAPERWORK. STATES SHE IS UNABLE TO PROVIDE PAPERWORK AT THIS TIME. FAX NUMBER PROVIDED. SPOKE WITH PT'S DAUGHTER JANKI WHO STATES SHE IS PT'S POA. STATES SHE WILL BE BRINGING POA PAPERWORK NOTERIZED THIS PAST WEEK WITHIN THE HOUR AND THAT ERICK IS NO LONGER POA.
--- NOTE | 2017-09-07 09:22 | NUR ---
PHONE NUMBERS FOR DAUGHTERS AJNKI [phone] ERICK [phone]
--- NOTE | 2017-09-07 09:59 | NUR ---
DAUGHTER JANKI HERE TO PROVIDE POA PAPERWORK AND SIGN CONSENTS.
--- NOTE | 2017-09-07 10:18 | NUR ---
ER ADMISSIONS NOTIFIED OF CHANGES TO BE MADE TO PT'S FACESHEET. SPOKE WITH RASHEL.
--- NOTE | 2017-09-07 12:25 | NUR ---
REMAINS RESTING EYES CLOSED EVEN UNLABORED RESP NOTED.
--- NOTE | 2017-09-07 19:30 | NUR ---
REPORT RECIEVED. ASSESSMENT COMPLETED. SEE FLOW SHEET FOR DETAILS. PT SEEMS TO BE CONFUSED TO WHERE HE IS AND WHAT HE IS DOING HERE. PT HAS TRIED TO GET OUT OF BED ACTIVED THE BED ALARM. PT PLACED BACK IN BED, POSITIONED FOR COMFORT. WILL CONTINUE TO MONITOR PT.
--- NOTE | 2017-09-07 21:00 | NUR ---
PT RESTING WITH NO SIGNS OF DISTRESS. DAUGHTER CALLED AND PROVIDED SECURITY PASSWORD UPDATE WAS GIVEN. WILL CONTINUE TO MONITOR PT.
--- NOTE | 2017-09-07 23:00 | NUR ---
REASSESSMENT COMPLETED. NO ACUTE CHANGES AT THIS TIME. SEE FLOW SHEET FOR FURTHER DETAILS. PT POSITIONED FOR COMFORT WILL CONTINUE TO MONITOR.
[2017-09-08] VITALS (21 sets, daily range): BP systolic 105–164; BP diastolic 54–97; Ht 190.5 cm; Wt 80.3 kg
--- NOTE | 2017-09-08 01:00 | NUR ---
PT WILL NOT KEEP MONITORING SYSTEM ON PULLES THEM OFF SHORTLY AFTER REPLACING. WILL CONTINUE TO MONITOR PT
--- NOTE | 2017-09-08 03:06 | NUR ---
REASSESSMENT COMPLETED AT THIS TIME. SEE FLOW SHEET FOR FURTHER DETAILS. PT TRYING TO GET OUT OF THE BED PT STATES " ITS TIME TO GET UP" HELPED HIM BACK TO BED AND POSITIONED FOR COMFORT. WILL CONTINUE TO MONITOR PT.
--- NOTE | 2017-09-08 05:00 | NUR ---
PT VERY RESTLESS AND UNEASY. PRN MEDS GIVEN. WILL CONTINUE TO EASY THE PT. WILL CONTINUE TO MONITOR PT.
--- NOTE | 2017-09-08 09:35 | NUR ---
VAHE RODRIGEZ RN HERE FOR VENOUS ACCESS. MIDLINE PLACED IN R UPPER ARM, PATIENT TOLERATED WELL.
--- NOTE | 2017-09-08 10:19 | NUR ---
Unable to assess dc plans/needs - patient confused, no family present.
[2017-09-08 13:24] LABS: BASOPHILS 0 % (0-2); EOSINOPHILS 0.1 % (0-7); HEMATOCRIT 29.9 % (42.0-54.0); HEMOGLOBIN 9.5 g/dL (13.5-17.5); IMMATURE GRANULOCYTES 0.2 % (0-5); LYMPHOCYTES 9.8 % (15-50); MCH 26.9 pg (26.0-34.0); MCHC 31.8 g/dL (31.0-37.0); MEAN PLATELET VOLUME 9.1 fL (7.4-10.4); MONOCYTES 15.7 % (2-11); NEUTROPHILS 74.2 % (40-80); RBC 3.53 10x6/uL (4.20-6.10); RDW 20.2 % (11.5-14.5)
[2017-09-08 13:25] LABS: MCV 84.7 fL (80.0-100.0); PLATELET COUNT 258 10x3/uL (130-400); WBC 8.3 10x3/uL (4.8-10.8)
[2017-09-08 13:45] LABS: INR 1.1 (0.85-1.17); PROTIME 14.1 SECONDS (11.6-15.0)
[2017-09-08 13:51] LABS: BILIRUBIN - TOTAL 0.7 mg/dL (0.2-1.3); POTASSIUM - SERUM 4.1 mmol/L (3.5-5.1); PROTEIN - SERUM 6.6 g/dL (6.4-8.2)
[2017-09-08 14:02] LABS: ANION GAP 13.6 mmol/L (8-16); CARBON DIOXIDE 23.5 mmol/L (21.0-32.0); CREATININE - SERUM 1.4 mg/dL (0.6-1.3)
--- NOTE | 2017-09-08 15:15 | NUR ---
DR. PATTON IN WITH PATIENT FOR EGD.
--- NOTE | 2017-09-08 15:24 | NUR ---
1524 PT REMAINS IN CVICU SAME ROOM. REPORT TO HIS NURSE
[2017-09-08] MEDS ORDERED: PROTONIX40 MG PO (15:32)
[2017-09-08] MEDS ORDERED: CARAFATE1 G/10 ML PO (15:32)
--- NOTE | 2017-09-13 18:57 | NUR ---
POA DAUGHTER CALLED UNIT-UPSET ABOUT NEW PRESCRIPTION MEDICATION[facility] [place] [place]. STATED COST TOO HIGH AND NEEDED ALL PRESCRIPTIONS CALLED IN TO [facility].-SPOKE WITH REWORKER AND ADVISED POA WILL ENTER PT CHART-CALLED [facility] AND SPOKE WITH PHARMACIST AND ABLE TO CALL IN NEW PRESCRIPTIONS-NOT ABLE TO CALL IN HOME MEDICATION LIST -QUANTITY NOT AVAILABLE. RETURNED CALL TO POA AND ADVISED NEW PRESCRIPTIONS CALLED IN TO [facility], AND PHARMACIST WILL NOTIFY DR DICKERSON SERVICE FOR ADDITIONAL PRESCRIPTIONS FROM OFFICE. POA APPEARED TO UNDERSTAND
== END 2017-09-08 17:30 | disposition home or self-care (01) | DRG 380 ==
LOC: D.ER 15:13 → D.CVICU 17:14
PROVIDERS: Family Medicine; ADMIT Internal Medicine Gastroenterology
PROC: B54MZZA Ultrasonography of Right Upper Extremity Veins, Guidance (ICD-10-PCS; 2017-09-08)
PROC: 0DJ08ZZ Inspection of Upper Intestinal Tract, Via Natural or Artificial Opening Endoscopic (ICD-10-PCS; 2017-09-08)
PROC: 05HB33Z Insertion of Infusion Device into Right Basilic Vein, Percutaneous Approach (ICD-10-PCS; principal; 2017-09-08 14:48)
DX: K22.11 Ulcer of esophagus with bleeding (principal); G93.41 Metabolic encephalopathy; D62 Acute posthemorrhagic anemia; F10.239 Alcohol dependence with withdrawal, unspecified; I10 Essential (primary) hypertension; I48.91 Unspecified atrial fibrillation; Z86.73 Personal history of transient ischemic attack (TIA), and cerebral infarction without residual deficits; F19.90 Other psychoactive substance use, unspecified, uncomplicated